=== PATIENT | female | born 1960 | race Caucasian/White ===

== ENCOUNTER 2022-09-22 09:51 | Emergency (ER) | payer OTHER ==
[2022-09-22] MEDS ORDERED: Bacitracin 1 PK ONE (10:15)
== END 2022-09-22 11:15 | disposition home or self-care (01) ==
LOC: CSHERS 09:51
DX: S91.302A Unspecified open wound, left foot, initial encounter (principal); I10 Essential (primary) hypertension; W19.XXXA Unspecified fall, initial encounter

== ENCOUNTER 2022-10-03 23:30 | Inpatient (IN) | payer OTHER ==
[2022-10-04 01:27] LABS: #Eosinphils 0.3 10x3/uL (0.0-0.5); #Monocytes 0.5 10x3/uL (0.0-1.1); #Neutrophils 5.7 10x3/uL (1.5-8.4); %Basophils 0.4 % (0.0-2.0); %Eosinophils 3.9 % (0.0-6.0); %Lymphocytes 13.5 % (18.0-47.0); %Monocytes 6.1 % (0.0-10.0); %Neutrophils 75.7 % (40.0-75.0); Hemoglobin 8.4 g/dL (12.0-15.5); Mean Corpuscular HGB CONC 32.6 g/dL (32.0-36.0); Mean Corpuscular Hemoglobin 28.9 pg (27.0-33.0); Mean Corpuscular Volume 88.7 fl (81.6-98.3); Platelet Count 195 10x3/uL (150-450); RBC Distribution Width 15.5 % (11.5-14.5); Red Blood Cell (RBC) Count 2.91 10x6/uL (3.90-5.03); White Blood Cell (WBC) Count 7.5 10x3/uL (3.5-10.5)
[2022-10-04 01:42] LABS: ALT (SGPT) 19 U/L (8-55); AST (SGOT) 15 U/L (5-34); Albumin 4.1 g/dL (3.4-4.8); Alkaline Phosphatase 78 U/L (40-110); Anion Gap 18 mmol/L (10-20); BUN (Urea Nitrogen) 87 mg/dL (9.8-20.1); Bilirubin, Total 0.3 mg/dL (0.2-1.2); Calc. Creatinine Clearance 0 mL/min (70-130); Calcium 9.9 mg/dL (7.8-10.44); Carbon Dioxide 17 mmol/L (23-31); Chloride 111 mmol/L (98-107); Estimated GFR 16; Globulin 2.4 g/dL (2.4-3.5); Glucose 184 mg/dL (80-115); Potassium 5.9 mmol/L (3.5-5.1); Protein, Total 6.5 g/dL (5.8-8.1); Sodium 140 mmol/L (136-145)
[2022-10-04] MEDS ORDERED: Cefepime 2 GM VIAL ONE (01:42)
[2022-10-04] MEDS ORDERED: Cefepime 2 GM in Sodium Chloride 0.9% 100 ML IVPB ONE (01:45)
[2022-10-04] MEDS ORDERED: Dextrose 50% Abboject 50 ML SYRINGE ONE (02:13)
[2022-10-04] MEDS ORDERED: LOKELMA 10 GM PACKET PO SCH ×2 (02:15→10:00)
[2022-10-04] MEDS ORDERED: Calcium Gluc 4.6 MEQ/10 ML (100 MG/ML) ONE (02:26)
[2022-10-04] MEDS ORDERED: Insulin Regular 300 UNITS/3 ML VIAL ONE (02:26)
[2022-10-04] MEDS ORDERED: Vancomycin 1 GM VIAL ONE (03:32)
[2022-10-04] MEDS ORDERED: Vancomycin HCl 1 GM in Sodium Chloride 0.9% 250 ML 250 ML IVPB ONE (03:45)
[2022-10-04] MEDS ORDERED: Vancomycin HCl 500 MG VIAL ONE (04:01)
[2022-10-04] MEDS ORDERED: Communication Order-Pharmacy FS ONE (04:14)
[2022-10-04] MEDS ORDERED: Vancomycin HCl 500 MG in Sodium Chloride 0.9% 100 ML IVPB SCH (04:15)
[2022-10-04] MEDS ORDERED: Sodium Chloride 0.9% 1,000 ML IV SCH (04:15)
[2022-10-04] MEDS ORDERED: Acetaminophen 325 MG TAB PO PRN (04:21)
[2022-10-04] MEDS ORDERED: Senokot S 8.6-50 MG TAB PO PRN (04:21)
[2022-10-04 04:24] LABS: SARS-CoV-2 NAA Rapid Test Not Detected (NotDetected)
[2022-10-04 07:33] LABS: Anion Gap 16 mmol/L (10-20); BUN (Urea Nitrogen) 84 mg/dL (9.8-20.1); Calc. Creatinine Clearance 32 mL/min (70-130); Calcium 9.6 mg/dL (7.8-10.44); Carbon Dioxide 16 mmol/L (23-31); Chloride 113 mmol/L (98-107); Estimated GFR 18; Glucose 128 mg/dL (80-115); Potassium 5.5 mmol/L (3.5-5.1); Sodium 139 mmol/L (136-145)
[2022-10-04 07:34] LABS: Magnesium 2.2 mg/dL (1.6-2.6)
[2022-10-04] MEDS ORDERED: Ergocalciferol 1.25 MG(50,000 UNITS) CAP PO SCH (09:00)
[2022-10-04] MEDS ORDERED: ASCORBIC ACID 100 MG PO SCH (09:00)
[2022-10-04] MEDS ORDERED: FLU VACC QS2022-23(6MOS UP)/PF 60 MCG/0.5 ML SYRINGE IM ONE (09:00)
[2022-10-04] MEDS: Carvedilol 25 MG TAB PO SCH ×2 (09:15→16:30)
[2022-10-04] MEDS: Aspirin 81 mg Enteric Coated Tablet PO SCH (09:15)
[2022-10-04] MEDS: cloNIDine 0.1 MG TAB PO SCH ×3 (09:15→21:18)
[2022-10-04] MEDS: Apixaban 5 MG TAB PO SCH ×2 (09:15→21:18)
[2022-10-04] MEDS: HumuLIN 70/30 (300 UNITS/3 ML VIAL) SC SCH ×2 (09:16→21:20)
[2022-10-04] MEDS ORDERED: Sodium Bicarbonate 150 MEQ in Dextrose 5% in Water 1,000 ML IV SCH (10:00)
[2022-10-04] MEDS: Polyethylene Glycol 3350 17 GM Packet PO SCH (10:20)
[2022-10-04] MEDS ORDERED: Vancomycin 1 GM in Premix Bag 1 BAG IVPB PRN (11:42)
[2022-10-04] MEDS ORDERED: Lorazepam 2 MG/ML VIAL SLOW IVP SCH (12:00)
[2022-10-04] MEDS: Atorvastatin Calcium 40 MG TAB PO SCH (21:18)
[2022-10-05] MEDS: Cefepime 1 GM in Sodium Chloride 0.9% 100 ML IVPB SCH (01:32)
[2022-10-05 03:12] LABS: #Eosinphils 0.3 10x3/uL (0.0-0.5); #Monocytes 0.5 10x3/uL (0.0-1.1); #Neutrophils 4.8 10x3/uL (1.5-8.4); %Basophils 0.6 % (0.0-2.0); %Eosinophils 4.6 % (0.0-6.0); %Lymphocytes 15.8 % (18.0-47.0); %Monocytes 7.3 % (0.0-10.0); %Neutrophils 71.6 % (40.0-75.0); Hemoglobin 7.5 g/dL (12.0-15.5); Mean Corpuscular HGB CONC 32.1 g/dL (32.0-36.0); Mean Corpuscular Hemoglobin 28.5 pg (27.0-33.0); Mean Platelet Volume 9.8 fl (7.4-10.4); Platelet Count 176 10x3/uL (150-450); RBC Distribution Width 15.4 % (11.5-14.5); Red Blood Cell (RBC) Count 2.63 10x6/uL (3.90-5.03); White Blood Cell (WBC) Count 6.7 10x3/uL (3.5-10.5)
[2022-10-05 03:33] LABS: Anion Gap 13 mmol/L (10-20); BUN (Urea Nitrogen) 75 mg/dL (9.8-20.1); Calc. Creatinine Clearance 35 mL/min (70-130); Calcium 8.9 mg/dL (7.8-10.44); Carbon Dioxide 21 mmol/L (23-31); Chloride 110 mmol/L (98-107); Estimated GFR 19; Glucose 197 mg/dL (80-115); Sodium 139 mmol/L (136-145)
[2022-10-05 04:18] LABS: Vancomycin, Random 11.9 ug/mL (See Comment)
[2022-10-05] MEDS ORDERED: Vancomycin HCl 1 GM in Sodium Chloride 0.9% 250 ML 250 ML IVPB SCH (05:00)
[2022-10-05] MEDS ORDERED: VANCOMYCIN 1.25 GM/250 ML BAG IVPB SCH (05:00)
[2022-10-05 06:23] VITALS: BMI 31.6
[2022-10-05] MEDS: Carvedilol 25 MG TAB PO SCH ×2 (06:31→15:02)
[2022-10-05] MEDS: Polyethylene Glycol 3350 17 GM Packet PO SCH (07:26)
[2022-10-05] MEDS: cloNIDine 0.1 MG TAB PO SCH ×3 (08:01→20:09)
[2022-10-05] MEDS: Apixaban 5 MG TAB PO SCH ×2 (08:01→20:10)
[2022-10-05] MEDS: Aspirin 81 mg Enteric Coated Tablet PO SCH (08:01)
[2022-10-05] MEDS: HumuLIN 70/30 (300 UNITS/3 ML VIAL) SC SCH ×2 (08:02→20:11)
[2022-10-05] MEDS: Sodium Chloride 0.9% 1,000 ML IV SCH (09:45)
[2022-10-05] MEDS: Atorvastatin Calcium 40 MG TAB PO SCH (20:10)
[2022-10-06] MEDS: Cefepime 1 GM in Sodium Chloride 0.9% 100 ML IVPB SCH (01:49)
[2022-10-06 03:52] LABS: #Eosinphils 0.3 10x3/uL (0.0-0.5); #Monocytes 0.6 10x3/uL (0.0-1.1); #Neutrophils 5.4 10x3/uL (1.5-8.4); %Basophils 0.3 % (0.0-2.0); %Eosinophils 3.5 % (0.0-6.0); %Lymphocytes 14.2 % (18.0-47.0); %Monocytes 7.7 % (0.0-10.0); Hemoglobin 7.7 g/dL (12.0-15.5); Mean Corpuscular HGB CONC 32.5 g/dL (32.0-36.0); Mean Corpuscular Hemoglobin 28.8 pg (27.0-33.0); Mean Corpuscular Volume 88.8 fl (81.6-98.3); Mean Platelet Volume 9.3 fl (7.4-10.4); Platelet Count 168 10x3/uL (150-450); RBC Distribution Width 15.1 % (11.5-14.5); Red Blood Cell (RBC) Count 2.67 10x6/uL (3.90-5.03); White Blood Cell (WBC) Count 7.2 10x3/uL (3.5-10.5)
[2022-10-06 04:07] LABS: ALT (SGPT) 18 U/L (8-55); AST (SGOT) 10 U/L (5-34); Albumin 3.3 g/dL (3.4-4.8); Alkaline Phosphatase 69 U/L (40-110); Anion Gap 12 mmol/L (10-20); BUN (Urea Nitrogen) 77 mg/dL (9.8-20.1); Bilirubin, Total 0.3 mg/dL (0.2-1.2); Calc. Creatinine Clearance 35 mL/min (70-130); Calcium 8.8 mg/dL (7.8-10.44); Carbon Dioxide 19 mmol/L (23-31); Chloride 111 mmol/L (98-107); Estimated GFR 20; Globulin 1.7 g/dL (2.4-3.5); Glucose 138 mg/dL (80-115); Magnesium 2.1 mg/dL (1.6-2.6); Phosphorus 3.8 mg/dL (2.3-4.7); Potassium 5.3 mmol/L (3.5-5.1); Sodium 137 mmol/L (136-145)
[2022-10-06 04:24] LABS: Vancomycin, Random 14.3 ug/mL (See Comment)
[2022-10-06] MEDS: Sodium Chloride 0.9% 1,000 ML IV SCH (04:28)
[2022-10-06] MEDS ORDERED: Vancomycin HCl 750 MG in Sodium Chloride 0.9% 250 ML 250 ML IVPB SCH (05:00)
[2022-10-06] MEDS: Carvedilol 25 MG TAB PO SCH ×2 (05:43→14:07)
[2022-10-06] MEDS: Aspirin 81 mg Enteric Coated Tablet PO SCH (08:24)
[2022-10-06] MEDS: Polyethylene Glycol 3350 17 GM Packet PO SCH (08:24)
[2022-10-06] MEDS: cloNIDine 0.1 MG TAB PO SCH ×3 (08:24→20:57)
[2022-10-06] MEDS: Apixaban 5 MG TAB PO SCH ×2 (08:24→20:58)
[2022-10-06] MEDS: HumuLIN 70/30 (300 UNITS/3 ML VIAL) SC SCH ×2 (08:24→20:57)
[2022-10-06] MEDS ORDERED: Sodium Bicarbonate 150 MEQ in Dextrose 5% in Water 1,000 ML IV SCH (12:00)
[2022-10-06] MEDS ORDERED: hydrALAZINE 25 MG TAB PO SCH (12:30)
[2022-10-06] MEDS: Atorvastatin Calcium 40 MG TAB PO SCH (20:58)
[2022-10-07] MEDS: Cefepime 1 GM in Sodium Chloride 0.9% 100 ML IVPB SCH (01:33)
[2022-10-07 04:31] LABS: Anion Gap 11 mmol/L (10-20); BUN (Urea Nitrogen) 70 mg/dL (9.8-20.1); Calc. Creatinine Clearance 37 mL/min (70-130); Calcium 9.1 mg/dL (7.8-10.44); Carbon Dioxide 20 mmol/L (23-31); Chloride 113 mmol/L (98-107); Estimated GFR 22; Glucose 105 mg/dL (80-115); Potassium 5.1 mmol/L (3.5-5.1); Sodium 139 mmol/L (136-145); Vancomycin, Random 17.5 ug/mL (See Comment)
[2022-10-07 04:51] LABS: #Eosinphils 0.2 10x3/uL (0.0-0.5); #Monocytes 0.5 10x3/uL (0.0-1.1); #Neutrophils 5.3 10x3/uL (1.5-8.4); %Basophils 0.4 % (0.0-2.0); %Eosinophils 3.4 % (0.0-6.0); %Lymphocytes 13.6 % (18.0-47.0); %Monocytes 6.8 % (0.0-10.0); %Neutrophils 75.5 % (40.0-75.0); Hemoglobin 7.6 g/dL (12.0-15.5); Mean Corpuscular HGB CONC 32.2 g/dL (32.0-36.0); Mean Corpuscular Hemoglobin 28.6 pg (27.0-33.0); Mean Corpuscular Volume 88.7 fl (81.6-98.3); Mean Platelet Volume 9.7 fl (7.4-10.4); Platelet Count 168 10x3/uL (150-450); Red Blood Cell (RBC) Count 2.66 10x6/uL (3.90-5.03); White Blood Cell (WBC) Count 7.1 10x3/uL (3.5-10.5)
[2022-10-07] MEDS: Carvedilol 25 MG TAB PO SCH ×2 (05:56→15:30)
[2022-10-07] MEDS ORDERED: Vancomycin HCl 500 MG in Sodium Chloride 0.9% 100 ML IVPB SCH (08:00)
[2022-10-07] MEDS ORDERED: hydrALAZINE 25 MG TAB PO SCH ×2 (09:00→21:00)
[2022-10-07] MEDS ORDERED: Lisinopril 2.5 MG TAB PO SCH (09:00)
[2022-10-07] MEDS: HumuLIN 70/30 (300 UNITS/3 ML VIAL) SC SCH (09:25)
[2022-10-07] MEDS: Aspirin 81 mg Enteric Coated Tablet PO SCH (09:32)
[2022-10-07] MEDS: Apixaban 5 MG TAB PO SCH (09:33)
[2022-10-07] MEDS: cloNIDine 0.1 MG TAB PO SCH ×2 (09:35→15:30)
[2022-10-07] MEDS: Polyethylene Glycol 3350 17 GM Packet PO SCH (09:37)
[2022-10-07] MEDS ORDERED: EPOETIN ALFA-EPBX (NON-ESRD) 10,000 UNIT/ML VIAL SC SCH (11:00)
[2022-10-07 17:24] VITALS: BP 187/81; TEMP 98.4
[2022-10-07] MEDS ORDERED: Furosemide 40 MG TAB PO SCH (21:00)
[2022-10-08] MEDS ORDERED: Furosemide 20 MG TAB PO SCH (09:00)
== END 2022-10-07 18:50 | disposition home or self-care (01) | DRG 638 ==
LOC: CSHERS 23:30 → CSHICU 10-04 04:34 → CSHTELE 10-05 11:16
PROVIDERS: ADMIT Family Medicine; ATTEND Internal Medicine
PROC: 0HDNXZZ Extraction of Left Foot Skin, External Approach (ICD-10-PCS; principal; 2022-10-06)
DX: E11.628 Type 2 diabetes mellitus with other skin complications (principal); E11.52 Type 2 diabetes mellitus with diabetic peripheral angiopathy with gangrene; E87.20 Acidosis, unspecified; L03.116 Cellulitis of left lower limb; I50.32 Chronic diastolic (congestive) heart failure; I13.0 Hypertensive heart and chronic kidney disease with heart failure and stage 1 through stage 4 chronic kidney disease, or unspecified chronic kidney disease; N18.4 Chronic kidney disease, stage 4 (severe); E78.5 Hyperlipidemia, unspecified; E11.22 Type 2 diabetes mellitus with diabetic chronic kidney disease; D63.1 Anemia in chronic kidney disease; M10.9 Gout, unspecified; E87.5 Hyperkalemia; N17.9 Acute kidney failure, unspecified; Z20.822 Contact with and (suspected) exposure to COVID-19; Z98.890 Other specified postprocedural states; Z91.040 Latex allergy status; Z88.8 Allergy status to other drugs, medicaments and biological substances; Z79.82 Long term (current) use of aspirin; Z79.899 Other long term (current) drug therapy; Z86.718 Personal history of other venous thrombosis and embolism; Z90.79 Acquired absence of other genital organ(s); Z83.3 Family history of diabetes mellitus; Z82.49 Family history of ischemic heart disease and other diseases of the circulatory system; Z79.4 Long term (current) use of insulin; E66.9 Obesity, unspecified; Z68.31 Body mass index [BMI] 31.0-31.9, adult
CPT/HCPCS: 36415; 36416; 70551; 80048; 80053; 80202; 83605; 83735; 84100; 85025; 85652; 86140; 87040; 87070; 87077; 87205; 93306; 93880; 97139; J0610; J0692; J1815; J2060; J3370; J3490; J7050; J7070; J7999; Q5106

== ENCOUNTER 2022-10-30 08:26 | Outpatient (CLI) | payer OTHER | END 2022-10-30 08:27 | disposition home or self-care (01) | LOC: CSHWCC 08:26 | PROVIDERS: ATTEND Nurse Practitioner Family | DX: R60.0 Localized edema (principal) | CPT/HCPCS: 29581; 99212; G0463 ==

== ENCOUNTER 2022-11-06 09:45 | Outpatient (CLI) | payer OTHER | END 2022-11-06 09:46 | disposition home or self-care (01) | LOC: CSHWCC 09:45 | PROVIDERS: ATTEND Nurse Practitioner Family | DX: L89.620 Pressure ulcer of left heel, unstageable (principal); R60.0 Localized edema | CPT/HCPCS: 11042; 29581 ==

== ENCOUNTER 2022-11-13 13:40 | Outpatient (CLI) | payer OTHER | END 2022-11-13 13:41 | disposition home or self-care (01) | LOC: CSHWCC 13:40 | PROVIDERS: ATTEND Nurse Practitioner Family | DX: L89.620 Pressure ulcer of left heel, unstageable (principal); R60.0 Localized edema | CPT/HCPCS: 11042 ==

== ENCOUNTER 2022-11-19 11:20 | Outpatient (CLI) | payer OTHER | END 2022-11-19 11:21 | disposition home or self-care (01) | LOC: CSHWCC 11:20 | PROVIDERS: ATTEND Nurse Practitioner Family | DX: L89.620 Pressure ulcer of left heel, unstageable (principal); R60.0 Localized edema | CPT/HCPCS: 11042; 11045 ==

== ENCOUNTER 2022-11-29 09:52 | Outpatient (CLI) | payer OTHER | END 2022-11-29 09:53 | disposition home or self-care (01) | LOC: CSHWCC 09:52 | PROVIDERS: ATTEND Nurse Practitioner Family | DX: L89.620 Pressure ulcer of left heel, unstageable (principal); R60.0 Localized edema | CPT/HCPCS: 29581 ==

== ENCOUNTER 2022-12-07 18:14 | Inpatient (IN) | payer OTHER ==
[2022-12-07] MEDS ORDERED: Vancomycin 1.5 GRAM/300 ML BAG 1.5 GM in Premix Bag 1 BAG IVPB SCH (20:00)
[2022-12-07] MEDS ORDERED: Ampicillin/Sulbactam 3 GM in Sodium Chloride 0.9% 100 ML IVPB SCH (20:00)
[2022-12-07 20:17] LABS: #Eosinphils 0.2 10x3/uL (0.0-0.5); #Monocytes 0.6 10x3/uL (0.0-1.1); #Neutrophils 7.9 10x3/uL (1.5-8.4); %Basophils 0.3 % (0.0-2.0); %Eosinophils 2.3 % (0.0-6.0); %Lymphocytes 10.8 % (18.0-47.0); %Monocytes 6.4 % (0.0-10.0); %Neutrophils 79.8 % (40.0-75.0); Hemoglobin 9.3 g/dL (12.0-15.5); Mean Corpuscular HGB CONC 31.1 g/dL (32.0-36.0); Mean Corpuscular Hemoglobin 28.1 pg (27.0-33.0); Mean Corpuscular Volume 90.3 fl (81.6-98.3); Mean Platelet Volume 10.3 fl (7.4-10.4); Platelet Count 252 10x3/uL (150-450); RBC Distribution Width 15.8 % (11.5-14.5); Red Blood Cell (RBC) Count 3.31 10x6/uL (3.90-5.03)
[2022-12-07 20:21] LABS: ALT (SGPT) 17 U/L (8-55); AST (SGOT) 17 U/L (5-34); Albumin 3.8 g/dL (3.4-4.8); Alkaline Phosphatase 93 U/L (40-110); Anion Gap 18 mmol/L (10-20); BUN (Urea Nitrogen) 96 mg/dL (9.8-20.1); Bilirubin, Total 0.3 mg/dL (0.2-1.2); Calc. Creatinine Clearance 0 mL/min (70-130); Calcium 10.2 mg/dL (7.8-10.44); Carbon Dioxide 28 mmol/L (23-31); Chloride 98 mmol/L (98-107); Estimated GFR 14; Globulin 2.9 g/dL (2.4-3.5); Glucose 264 mg/dL (80-115); Potassium 4.1 mmol/L (3.5-5.1); Protein, Total 6.7 g/dL (5.8-8.1); Sodium 140 mmol/L (136-145)
[2022-12-07 20:45] LABS: Bilirubin Neg (Negative); Blood, Urine 50 (Negative); Glucose, Urine (Dipstick) 250 mg/dL (Negative); Ketone, Urine Negative (Negative); Leukocyte 25 (Negative); Nitrite Negative (Negative); Protein, Urine (Dipstick) 500 mg/dl (Neg-Trace); Urobilinogen Normal mg/dL (Less than 2)
[2022-12-07 20:46] LABS: Clarity Slightly Cloudy (Clear)
[2022-12-07 20:49] LABS: Bacteria/HPF 3+ HPF (None Seen)
[2022-12-07] MEDS ORDERED: cloNIDine 0.1 MG TAB ONE (21:33)
[2022-12-07] MEDS: Sodium Chloride 0.9% 1,000 ML IV SCH (22:30)
[2022-12-07] MEDS ORDERED: Acetaminophen 325 MG TAB PO PRN (23:01)
[2022-12-07] MEDS ORDERED: Dextrose 5% in Water 1,000 ML IV PRN (23:13)
[2022-12-07] MEDS ORDERED: Dextrose 50% Abboject 50 ML SYRINGE SLOW IVP PRN (23:13)
[2022-12-07] MEDS ORDERED: VANCOMYCIN IVPB SCH (23:45)
[2022-12-07] MEDS: HumaLOG 300 UNITS/3 ML VIAL SC PRN (23:51)
[2022-12-07] MEDS ORDERED: hydrALAZINE 25 MG TAB PO SCH (23:59)
[2022-12-07] MEDS ORDERED: Carvedilol 25 MG TAB PO SCH (23:59)
[2022-12-07] MEDS ORDERED: Apixaban 5 MG TAB PO SCH (23:59)
[2022-12-07] MEDS ORDERED: cloNIDine 0.1 MG TAB PO SCH (23:59)
[2022-12-08 00:15] VITALS: BMI 30.9
[2022-12-08] MEDS ORDERED: Vancomycin Dose by Levels Sliding Scale (Wt 71-99) FS SCH (00:30)
[2022-12-08 04:38] LABS: #Eosinphils 0.2 10x3/uL (0.0-0.5); #Monocytes 0.6 10x3/uL (0.0-1.1); #Neutrophils 5.9 10x3/uL (1.5-8.4); %Basophils 0.5 % (0.0-2.0); %Eosinophils 3.1 % (0.0-6.0); %Lymphocytes 13.2 % (18.0-47.0); %Monocytes 7.6 % (0.0-10.0); Hemoglobin 7.7 g/dL (12.0-15.5); Mean Corpuscular Hemoglobin 28.4 pg (27.0-33.0); Mean Corpuscular Volume 91.5 fl (81.6-98.3); Mean Platelet Volume 9.5 fl (7.4-10.4); Platelet Count 206 10x3/uL (150-450); RBC Distribution Width 15.8 % (11.5-14.5); Red Blood Cell (RBC) Count 2.71 10x6/uL (3.90-5.03); White Blood Cell (WBC) Count 7.9 10x3/uL (3.5-10.5)
[2022-12-08 04:49] LABS: Anion Gap 15 mmol/L (10-20); BUN (Urea Nitrogen) 93 mg/dL (9.8-20.1); Calc. Creatinine Clearance 26 mL/min (70-130); Carbon Dioxide 27 mmol/L (23-31); Chloride 102 mmol/L (98-107); Estimated GFR 14; Glucose 188 mg/dL (80-115); Magnesium 3.2 mg/dL (1.6-2.6); Potassium 3.8 mmol/L (3.5-5.1); Sodium 140 mmol/L (136-145)
[2022-12-08] MEDS: HumaLOG 300 UNITS/3 ML VIAL SC PRN ×3 (06:31→21:05)
[2022-12-08] MEDS ORDERED: Ampicillin/Sulbactam 3 GM in Sodium Chloride 0.9% 100 ML IVPB SCH (08:00)
[2022-12-08] MEDS: HumuLIN 70/30 (300 UNITS/3 ML VIAL) SC SCH ×2 (09:32→20:56)
[2022-12-08] MEDS: Senokot S 8.6-50 MG TAB PO PRN (09:33)
[2022-12-08] MEDS: cloNIDine 0.1 MG TAB PO SCH ×3 (09:33→20:56)
[2022-12-08] MEDS: Aspirin 81 mg Enteric Coated Tablet PO SCH (09:33)
[2022-12-08] MEDS: Apixaban 5 MG TAB PO SCH ×2 (09:33→20:56)
[2022-12-08] MEDS: Carvedilol 25 MG TAB PO SCH ×2 (09:33→15:44)
[2022-12-08] MEDS: hydrALAZINE 25 MG TAB PO SCH ×3 (09:33→20:56)
[2022-12-08] MEDS: cefTRIAXone\\ROCEPHIN 1 GM in Sodium Chloride 0.9% 100 ML IVPB SCH (09:58)
[2022-12-08] MEDS: Sodium Chloride 0.9% 1,000 ML IV SCH (11:53)
[2022-12-08 13:27] LABS: Uric Acid 5.9 mg/dL (2.6-6.0)
[2022-12-08 23:02] LABS: Vancomycin, Random 14.7 ug/mL (See Comment)
[2022-12-08] MEDS ORDERED: Vancomycin HCl 750 MG in Sodium Chloride 0.9% 250 ML 250 ML IVPB SCH (23:30)
[2022-12-09] MEDS: Sodium Chloride 0.9% 1,000 ML IV SCH (00:27)
[2022-12-09 04:36] LABS: Mean Corpuscular HGB CONC 30.6 g/dL (32.0-36.0); Mean Corpuscular Hemoglobin 28.5 pg (27.0-33.0); Mean Corpuscular Volume 93.1 fl (81.6-98.3); Mean Platelet Volume 10.1 fl (7.4-10.4); Platelet Count 194 10x3/uL (150-450); RBC Distribution Width 15.9 % (11.5-14.5); Red Blood Cell (RBC) Count 2.46 10x6/uL (3.90-5.03); White Blood Cell (WBC) Count 6.7 10x3/uL (3.5-10.5)
[2022-12-09 04:42] LABS: Anion Gap 13 mmol/L (10-20); BUN (Urea Nitrogen) 88 mg/dL (9.8-20.1); Calc. Creatinine Clearance 26 mL/min (70-130); Calcium 8.6 mg/dL (7.8-10.44); Carbon Dioxide 27 mmol/L (23-31); Chloride 105 mmol/L (98-107); Estimated GFR 15; Glucose 182 mg/dL (80-115); Potassium 3.8 mmol/L (3.5-5.1); Sodium 141 mmol/L (136-145)
[2022-12-09] MEDS: cefTRIAXone\\ROCEPHIN 1 GM in Sodium Chloride 0.9% 100 ML IVPB SCH (08:34)
[2022-12-09] MEDS: HumuLIN 70/30 (300 UNITS/3 ML VIAL) SC SCH (08:34)
[2022-12-09] MEDS: Aspirin 81 mg Enteric Coated Tablet PO SCH (08:35)
[2022-12-09] MEDS: Apixaban 5 MG TAB PO SCH ×2 (08:35→22:02)
[2022-12-09] MEDS: hydrALAZINE 25 MG TAB PO SCH ×3 (08:35→22:01)
[2022-12-09] MEDS: cloNIDine 0.1 MG TAB PO SCH ×3 (08:35→22:00)
[2022-12-09] MEDS: Senokot S 8.6-50 MG TAB PO PRN (08:35)
[2022-12-09] MEDS: Carvedilol 25 MG TAB PO SCH ×2 (08:36→16:13)
[2022-12-09] MEDS ORDERED: Furosemide 40 MG TAB PO SCH (09:00)
[2022-12-09] MEDS ORDERED: hydrALAZINE 25 MG TAB PO SCH (09:00)
[2022-12-09] MEDS ORDERED: CLONIDINE HCL 0.3 MG PO SCH (09:00)
[2022-12-09] MEDS ORDERED: Polyethylene Glycol 3350 17 GM Packet PO PRN (12:20)
[2022-12-09] MEDS ORDERED: Docusate 100 MG CAP PO PRN (12:20)
[2022-12-09 14:04] LABS: Hemoglobin 7.3 g/dL (12.0-15.5)
[2022-12-09] MEDS: Ferrous Sulfate 325 MG TAB PO SCH (16:13)
[2022-12-09] MEDS: HumaLOG 300 UNITS/3 ML VIAL SC PRN (16:25)
[2022-12-10] MEDS: HumuLIN 70/30 (300 UNITS/3 ML VIAL) SC SCH ×3 (00:20→22:23)
[2022-12-10 00:27] LABS: Vancomycin, Random 16.7 ug/mL (See Comment)
[2022-12-10] MEDS ORDERED: Vancomycin HCl 500 MG in Sodium Chloride 0.9% 100 ML IVPB SCH (02:00)
[2022-12-10 05:12] LABS: Mean Corpuscular HGB CONC 30.4 g/dL (32.0-36.0); Mean Corpuscular Hemoglobin 28.2 pg (27.0-33.0); Mean Corpuscular Volume 92.7 fl (81.6-98.3); Mean Platelet Volume 9.7 fl (7.4-10.4); Platelet Count 196 10x3/uL (150-450); RBC Distribution Width 15.9 % (11.5-14.5); Red Blood Cell (RBC) Count 2.48 10x6/uL (3.90-5.03); White Blood Cell (WBC) Count 7.2 10x3/uL (3.5-10.5)
[2022-12-10 05:30] LABS: Anion Gap 14 mmol/L (10-20); BUN (Urea Nitrogen) 77 mg/dL (9.8-20.1); Calc. Creatinine Clearance 30 mL/min (70-130); Calcium 8.9 mg/dL (7.8-10.44); Carbon Dioxide 25 mmol/L (23-31); Chloride 107 mmol/L (98-107); Estimated GFR 18; Glucose 183 mg/dL (80-115); Potassium 3.9 mmol/L (3.5-5.1); Sodium 142 mmol/L (136-145)
[2022-12-10] MEDS: NIFEdipine XL 60 MG TAB PO SCH (08:35)
[2022-12-10] MEDS: Ferrous Sulfate 325 MG TAB PO SCH ×2 (08:36→16:32)
[2022-12-10] MEDS: hydrALAZINE 25 MG TAB PO SCH ×3 (08:36→22:22)
[2022-12-10] MEDS: Aspirin 81 mg Enteric Coated Tablet PO SCH (08:36)
[2022-12-10] MEDS: cloNIDine 0.1 MG TAB PO SCH ×3 (08:36→22:22)
[2022-12-10] MEDS: Apixaban 5 MG TAB PO SCH ×2 (08:36→22:23)
[2022-12-10] MEDS: Carvedilol 25 MG TAB PO SCH ×2 (08:36→16:32)
[2022-12-10] MEDS: cefTRIAXone\\ROCEPHIN 1 GM in Sodium Chloride 0.9% 100 ML IVPB SCH (08:38)
[2022-12-10] MEDS ORDERED: Iron, Sodium Ferric Gluconate 125 MG in Sodium Chloride 0.9% 100 ML IVPB SCH (10:15)
[2022-12-11 05:33] LABS: Hemoglobin 7.1 g/dL (12.0-15.5); Mean Corpuscular HGB CONC 30.7 g/dL (32.0-36.0); Mean Corpuscular Hemoglobin 28.4 pg (27.0-33.0); Mean Corpuscular Volume 92.4 fl (81.6-98.3); Mean Platelet Volume 9.8 fl (7.4-10.4); Platelet Count 185 10x3/uL (150-450); RBC Distribution Width 15.9 % (11.5-14.5); White Blood Cell (WBC) Count 7.3 10x3/uL (3.5-10.5)
[2022-12-11 05:39] LABS: Anion Gap 12 mmol/L (10-20); BUN (Urea Nitrogen) 74 mg/dL (9.8-20.1); Calc. Creatinine Clearance 30 mL/min (70-130); Calcium 9.1 mg/dL (7.8-10.44); Carbon Dioxide 25 mmol/L (23-31); Chloride 109 mmol/L (98-107); Estimated GFR 17; Glucose 107 mg/dL (80-115); Potassium 4.3 mmol/L (3.5-5.1); Sodium 142 mmol/L (136-145)
[2022-12-11] MEDS: Vancomycin HCl 500 MG in Sodium Chloride 0.9% 100 ML IVPB SCH ×2 (07:24→07:52)
[2022-12-11] MEDS ORDERED: Vancomycin HCl 500 MG in Sodium Chloride 0.9% 100 ML IVPB SCH (07:30)
[2022-12-11] MEDS: Ferrous Sulfate 325 MG TAB PO SCH ×2 (08:47→17:12)
[2022-12-11] MEDS: hydrALAZINE 25 MG TAB PO SCH (08:47)
[2022-12-11] MEDS: Carvedilol 25 MG TAB PO SCH ×2 (08:47→17:12)
[2022-12-11] MEDS: NIFEdipine XL 60 MG TAB PO SCH (08:47)
[2022-12-11] MEDS: Aspirin 81 mg Enteric Coated Tablet PO SCH (08:48)
[2022-12-11] MEDS: Apixaban 5 MG TAB PO SCH (08:48)
[2022-12-11] MEDS: cloNIDine 0.1 MG TAB PO SCH ×2 (08:48→14:41)
[2022-12-11] MEDS: HumuLIN 70/30 (300 UNITS/3 ML VIAL) SC SCH (08:50)
[2022-12-11] MEDS: cefTRIAXone\\ROCEPHIN 1 GM in Sodium Chloride 0.9% 100 ML IVPB SCH (08:50)
[2022-12-11] MEDS: Clindamycin 150 MG CAP PO SCH ×2 (12:09→17:12)
[2022-12-11] MEDS ORDERED: hydrALAZINE 25 MG TAB PO SCH ×2 (13:00→21:00)
[2022-12-11] MEDS: HumaLOG 300 UNITS/3 ML VIAL SC PRN (16:42)
[2022-12-11 17:21] VITALS: BP 165/74; TEMP 98.9
[2022-12-11] MEDS ORDERED: Furosemide 20 MG TAB PO SCH (21:00)
[2022-12-11] MEDS ORDERED: Cefdinir 300 MG CAP PO SCH (21:00)
[2022-12-11] MEDS ORDERED: Atorvastatin Calcium 40 MG TAB PO SCH (21:00)
[2022-12-12] MEDS ORDERED: cefTRIAXone\\ROCEPHIN 2 GM in Sodium Chloride 0.9% 100 ML IVPB SCH (09:00)
[2022-12-12] MEDS ORDERED: cefTRIAXone Sodium 2 MG in Syringe 0 ML IVPB SCH (09:00)
== END 2022-12-11 18:48 | disposition home or self-care (01) | DRG 602 ==
LOC: CSHERS 18:14 → CSHTELE 21:45
PROVIDERS: ADMIT Family Medicine; ATTEND Family Medicine
DX: L03.115 Cellulitis of right lower limb (principal); N17.0 Acute kidney failure with tubular necrosis; I13.0 Hypertensive heart and chronic kidney disease with heart failure and stage 1 through stage 4 chronic kidney disease, or unspecified chronic kidney disease; I50.32 Chronic diastolic (congestive) heart failure; N39.0 Urinary tract infection, site not specified; N18.4 Chronic kidney disease, stage 4 (severe); I82.511 Chronic embolism and thrombosis of right femoral vein; I82.531 Chronic embolism and thrombosis of right popliteal vein; E11.621 Type 2 diabetes mellitus with foot ulcer; L03.116 Cellulitis of left lower limb; E66.9 Obesity, unspecified; L97.529 Non-pressure chronic ulcer of other part of left foot with unspecified severity; E11.22 Type 2 diabetes mellitus with diabetic chronic kidney disease; M10.9 Gout, unspecified; E11.40 Type 2 diabetes mellitus with diabetic neuropathy, unspecified; E78.5 Hyperlipidemia, unspecified; D63.8 Anemia in other chronic diseases classified elsewhere; Z20.822 Contact with and (suspected) exposure to COVID-19; Z91.040 Latex allergy status; Z88.8 Allergy status to other drugs, medicaments and biological substances; Z79.01 Long term (current) use of anticoagulants; Z79.899 Other long term (current) drug therapy; Z79.4 Long term (current) use of insulin; Z98.890 Other specified postprocedural states; Z68.31 Body mass index [BMI] 31.0-31.9, adult
CPT/HCPCS: 36415; 36416; 80048; 80053; 80202; 81003; 81015; 83605; 83735; 84550; 85025; 85027; 87040; 87070; 87077; 87086; 87186; 87205; 93005; 96365; 96366; 96367; 97139; J0295; J0696; J1815; J2916; J3370; J3490; J7050; U0003; U0005

== ENCOUNTER 2022-12-18 13:06 | Outpatient (CLI) | payer OTHER | END 2022-12-18 13:07 | disposition home or self-care (01) | LOC: CSHWCC 13:06 | PROVIDERS: ATTEND Nurse Practitioner Family | DX: S81.801D Unspecified open wound, right lower leg, subsequent encounter (principal); L89.620 Pressure ulcer of left heel, unstageable; R60.0 Localized edema | CPT/HCPCS: 99213; G0463 ==

== ENCOUNTER 2022-12-25 10:11 | Outpatient (CLI) | payer OTHER | END 2022-12-25 10:12 | disposition home or self-care (01) | LOC: CSHWCC 10:11 | PROVIDERS: ATTEND Nurse Practitioner Family | DX: L89.620 Pressure ulcer of left heel, unstageable (principal); S81.801D Unspecified open wound, right lower leg, subsequent encounter; R60.0 Localized edema | CPT/HCPCS: 11042 ==

== ENCOUNTER 2023-01-01 08:29 | Outpatient (CLI) | payer OTHER | END 2023-01-01 08:30 | disposition home or self-care (01) | LOC: CSHWCC 08:29 | PROVIDERS: ATTEND Nurse Practitioner Family | DX: L89.620 Pressure ulcer of left heel, unstageable (principal); R60.0 Localized edema | CPT/HCPCS: 99213; G0463 ==

== ENCOUNTER 2023-01-08 09:35 | Outpatient (CLI) | payer OTHER | END 2023-01-08 09:36 | disposition home or self-care (01) | LOC: CSHWCC 09:35 | PROVIDERS: ATTEND Nurse Practitioner Family | DX: L89.620 Pressure ulcer of left heel, unstageable (principal); R60.0 Localized edema | CPT/HCPCS: 29581 ==

== ENCOUNTER 2023-02-06 11:07 | Outpatient (CLI) | payer OTHER | END 2023-02-06 11:08 | disposition home or self-care (01) | LOC: CSHWCC 11:07 | PROVIDERS: ATTEND Nurse Practitioner Family | DX: L89.620 Pressure ulcer of left heel, unstageable (principal); R60.0 Localized edema | CPT/HCPCS: 99213; G0463 ==

== ENCOUNTER 2023-02-13 13:40 | Outpatient (CLI) | payer OTHER | END 2023-02-13 13:41 | disposition home or self-care (01) | LOC: CSHWCC 13:40 | PROVIDERS: ATTEND Nurse Practitioner Family | DX: R60.0 Localized edema (principal); L89.620 Pressure ulcer of left heel, unstageable | CPT/HCPCS: 11042; 29581 ==

== ENCOUNTER 2023-02-28 08:32 | Outpatient (CLI) | payer OTHER | END 2023-02-28 08:33 | disposition home or self-care (01) | LOC: CSHWCC 08:32 | PROVIDERS: ATTEND Nurse Practitioner Family | DX: R60.0 Localized edema (principal); L89.620 Pressure ulcer of left heel, unstageable | CPT/HCPCS: 11042; 29581; 99213; G0463 ==

== ENCOUNTER 2023-03-19 10:18 | Outpatient (CLI) | payer OTHER | END 2023-03-19 10:19 | disposition home or self-care (01) | LOC: CSHWCC 10:18 | PROVIDERS: ATTEND Nurse Practitioner Family | DX: R60.0 Localized edema (principal); L89.620 Pressure ulcer of left heel, unstageable | CPT/HCPCS: 11042 ==

== ENCOUNTER 2023-03-26 14:35 | Outpatient (CLI) | payer OTHER | END 2023-03-26 14:36 | disposition home or self-care (01) | LOC: CSHWCC 14:35 | PROVIDERS: ATTEND Nurse Practitioner Family | DX: R60.9 Edema, unspecified (principal); L89.620 Pressure ulcer of left heel, unstageable | CPT/HCPCS: 11042; 29581 ==

== ENCOUNTER 2023-04-02 14:47 | Outpatient (CLI) | payer OTHER | END 2023-04-02 14:48 | disposition home or self-care (01) | LOC: CSHWCC 14:47 | PROVIDERS: ATTEND Nurse Practitioner Family | DX: R60.0 Localized edema (principal); L89.620 Pressure ulcer of left heel, unstageable; S91.309D Unspecified open wound, unspecified foot, subsequent encounter | CPT/HCPCS: 29581; 97597 ==

== ENCOUNTER 2023-04-10 10:59 | Outpatient (CLI) | payer OTHER | END 2023-04-10 11:00 | disposition home or self-care (01) | LOC: CSHWCC 10:59 | PROVIDERS: ATTEND Nurse Practitioner Family | DX: R60.0 Localized edema (principal); L89.620 Pressure ulcer of left heel, unstageable; S91.309D Unspecified open wound, unspecified foot, subsequent encounter | CPT/HCPCS: 11042; 29581 ==

== ENCOUNTER 2023-04-17 10:14 | Outpatient (CLI) | payer OTHER | END 2023-04-17 10:15 | disposition home or self-care (01) | LOC: CSHWCC 10:14 | PROVIDERS: ATTEND Nurse Practitioner Family | DX: L89.623 Pressure ulcer of left heel, stage 3 (principal); L89.620 Pressure ulcer of left heel, unstageable; R60.0 Localized edema | CPT/HCPCS: 11042; 29581; 87070; 87077; 87186; 87205 ==

== ENCOUNTER 2023-04-25 10:34 | Outpatient (CLI) | payer OTHER | END 2023-04-25 10:35 | disposition home or self-care (01) | LOC: CSHWCC 10:34 | PROVIDERS: ATTEND Nurse Practitioner Family | DX: E11.621 Type 2 diabetes mellitus with foot ulcer (principal); R60.0 Localized edema; L89.620 Pressure ulcer of left heel, unstageable; L89.623 Pressure ulcer of left heel, stage 3; I87.311 Chronic venous hypertension (idiopathic) with ulcer of right lower extremity; L97.819 Non-pressure chronic ulcer of other part of right lower leg with unspecified severity; L97.519 Non-pressure chronic ulcer of other part of right foot with unspecified severity | CPT/HCPCS: 29581; 97597 ==

== ENCOUNTER 2023-05-02 08:46 | Outpatient (CLI) | payer OTHER | END 2023-05-02 08:47 | disposition home or self-care (01) | LOC: CSHWCC 08:46 | PROVIDERS: ATTEND Nurse Practitioner Family | DX: L89.623 Pressure ulcer of left heel, stage 3 (principal); L89.620 Pressure ulcer of left heel, unstageable; R60.0 Localized edema; E11.621 Type 2 diabetes mellitus with foot ulcer; L97.519 Non-pressure chronic ulcer of other part of right foot with unspecified severity | CPT/HCPCS: 29581; 97597 ==

== ENCOUNTER 2023-06-20 11:27 | Outpatient (CLI) | payer OTHER | END 2023-06-20 11:28 | disposition home or self-care (01) | LOC: CSHWCC 11:27 | PROVIDERS: ATTEND Preventive Medicine Undersea and Hyperbaric Medicine | DX: E11.621 Type 2 diabetes mellitus with foot ulcer (principal); L97.519 Non-pressure chronic ulcer of other part of right foot with unspecified severity; L89.620 Pressure ulcer of left heel, unstageable; R60.0 Localized edema | CPT/HCPCS: 97602 ==

== ENCOUNTER 2023-07-04 11:30 | Outpatient (CLI) | payer OTHER | END 2023-07-04 11:31 | disposition home or self-care (01) | LOC: CSHWCC 11:30 | PROVIDERS: ATTEND Physician Assistant | DX: E11.621 Type 2 diabetes mellitus with foot ulcer (principal); L89.629 Pressure ulcer of left heel, unspecified stage; Z99.3 Dependence on wheelchair | CPT/HCPCS: 29581; 99212; G0463 ==

== ENCOUNTER 2023-08-12 10:18 | Outpatient (CLI) | payer OTHER | END 2023-08-12 10:19 | disposition home or self-care (01) | LOC: CSHWCC 10:18 | PROVIDERS: ATTEND Physician Assistant | DX: E11.621 Type 2 diabetes mellitus with foot ulcer (principal); I87.313 Chronic venous hypertension (idiopathic) with ulcer of bilateral lower extremity; L89.629 Pressure ulcer of left heel, unspecified stage; Z99.3 Dependence on wheelchair | CPT/HCPCS: 29581 ==

== ENCOUNTER 2023-08-15 11:43 | Outpatient (CLI) | payer OTHER | END 2023-08-15 11:44 | disposition home or self-care (01) | LOC: CSHWCC 11:43 | PROVIDERS: ATTEND Physician Assistant | DX: E11.621 Type 2 diabetes mellitus with foot ulcer (principal); L97.519 Non-pressure chronic ulcer of other part of right foot with unspecified severity; I87.313 Chronic venous hypertension (idiopathic) with ulcer of bilateral lower extremity; L89.629 Pressure ulcer of left heel, unspecified stage; Z99.3 Dependence on wheelchair | CPT/HCPCS: 29581 ==

== ENCOUNTER 2023-09-07 07:01 | Inpatient (IN) | payer OTHER ==
[2023-09-07 08:28] LABS: #Neutrophils 11.2 10x3/uL (1.5-8.4); %Basophils 0.2 % (0.0-2.0); %Eosinophils 0.1 % (0.0-6.0); %Monocytes 7.5 % (0.0-10.0); %Neutrophils 85.6 % (40.0-75.0); Critical Call w/ Read Back ERS.HF@0828; Hematocrit 18.6 % (34.9-44.5); Hemoglobin 5.6 g/dL (12.0-15.5); Mean Corpuscular HGB CONC 30.1 g/dL (32.0-36.0); Mean Corpuscular Hemoglobin 28.9 pg (27.0-33.0); Mean Corpuscular Volume 95.9 fl (81.6-98.3); Mean Platelet Volume 9.9 fl (7.4-10.4); Platelet Count 228 10x3/uL (150-450); RBC Distribution Width 17.9 % (11.5-14.5); Red Blood Cell (RBC) Count 1.94 10x6/uL (3.90-5.03); White Blood Cell (WBC) Count 13.1 10x3/uL (3.5-10.5)
[2023-09-07 08:43] LABS: ALT (SGPT) 19 U/L (8-55); AST (SGOT) 13 U/L (5-34); Albumin 3.7 g/dL (3.4-4.8); Alkaline Phosphatase 80 U/L (40-110); Anion Gap 19 mmol/L (10-20); BUN (Urea Nitrogen) 85 mg/dL (9.8-20.1); Bilirubin, Total 0.7 mg/dL (0.2-1.2); Calc. Creatinine Clearance 0 mL/min (70-130); Calcium 9.1 mg/dL (7.8-10.44); Carbon Dioxide 22 mmol/L (23-31); Chloride 105 mmol/L (98-107); Estimated GFR 14; Globulin 2.2 g/dL (2.4-3.5); Glucose 277 mg/dL (80-115); Lipase 21 U/L (8-78); Magnesium 2.2 mg/dL (1.6-2.6); Potassium 3.4 mmol/L (3.5-5.1); Protein, Total 5.9 g/dL (5.8-8.1); Sodium 143 mmol/L (136-145)
[2023-09-07] MEDS ORDERED: LevoFLOXacin 750 mg/D5W 150 ml Premix Bag ONE (08:48)
[2023-09-07 09:37] LABS: SARS-CoV-2 NAA Rapid Test Not Detected (NotDetected)
[2023-09-07 09:54] LABS: Troponin I 0.055 ng/mL (< 0.028)
[2023-09-07 10:17] LABS: Bilirubin Neg (Negative); Blood, Urine 25 (Negative); Clarity Slightly Cloudy (Clear); Glucose, Urine (Dipstick) >=1000 mg/dL (Negative); Ketone, Urine Negative (Negative); Leukocyte Negative (Negative); Nitrite Negative (Negative); Protein, Urine (Dipstick) 500 mg/dl (Neg-Trace); Specific Gravity, Urine 1.015 (1.005-1.030); Urobilinogen Normal mg/dL (Less than 2)
[2023-09-07 10:32] LABS: Bacteria/HPF 2+ HPF (None Seen); CAUTI Indications for Culture Alt mental st,lethar; RBC/HPF 0-3 HPF (0-3); WBC/HPF 0-3 HPF (0-3)
[2023-09-07 10:33] LABS: Urine Culture Reflex No No
[2023-09-07 11:15] LABS: Lactic Acid 1.2 mmol/L (0.5-2.2)
[2023-09-07 11:25] LABS: Troponin I 0.058 ng/mL (< 0.028)
[2023-09-07] MEDS ORDERED: Dextrose 5% in Water 1,000 ML IV PRN (14:55)
[2023-09-07] MEDS ORDERED: Glucagon 1 MG/ML KIT IM PRN (14:55)
[2023-09-07] MEDS ORDERED: Dextrose 50% Abboject 50 ML SYRINGE SLOW IVP PRN (14:55)
[2023-09-07 18:53] VITALS: BMI 27.8
[2023-09-07] MEDS ORDERED: FLU VACC QS2023-24(6MOS UP)/PF 60 MCG/0.5 ML SYRINGE IM ONE (19:00)
[2023-09-07 19:18] LABS: Troponin I 0.034 ng/mL (< 0.028)
[2023-09-07] MEDS: HumaLOG 300 UNITS/3 ML VIAL SC PRN (21:10)
[2023-09-07] MEDS ORDERED: Carvedilol 3.125 MG TAB PO SCH (21:30)
[2023-09-08] MEDS ORDERED: hydrALAZINE 25 MG TAB PO SCH (01:15)
[2023-09-08 04:05] LABS: Anion Gap 17 mmol/L (10-20); BUN (Urea Nitrogen) 71 mg/dL (9.8-20.1); Calc. Creatinine Clearance 27 mL/min (70-130); Calcium 8.7 mg/dL (7.8-10.44); Carbon Dioxide 21 mmol/L (23-31); Chloride 105 mmol/L (98-107); Estimated GFR 17; Glucose 135 mg/dL (80-115); Potassium 3.1 mmol/L (3.5-5.1); Sodium 140 mmol/L (136-145)
[2023-09-08 04:45] LABS: #Eosinphils 0.1 10x3/uL (0.0-0.5); #Neutrophils 11.8 10x3/uL (1.5-8.4); %Basophils 0.3 % (0.0-2.0); %Eosinophils 0.5 % (0.0-6.0); %Lymphocytes 4.9 % (18.0-47.0); %Monocytes 7.1 % (0.0-10.0); %Neutrophils 86.5 % (40.0-75.0); Hematocrit 21.1 % (34.9-44.5); Hemoglobin 6.6 g/dL (12.0-15.5); Mean Corpuscular HGB CONC 31.3 g/dL (32.0-36.0); Mean Corpuscular Hemoglobin 28.9 pg (27.0-33.0); Mean Corpuscular Volume 92.5 fl (81.6-98.3); Mean Platelet Volume 10.5 fl (7.4-10.4); Platelet Count 168 10x3/uL (150-450); RBC Distribution Width 18.3 % (11.5-14.5); Red Blood Cell (RBC) Count 2.28 10x6/uL (3.90-5.03); White Blood Cell (WBC) Count 13.6 10x3/uL (3.5-10.5)
[2023-09-08 05:02] LABS: Ovalocytes SLIGHT = 2-5 cells (100X) (0-1/hpf); Platelet Adequacy Comment Appears Adequate; Polychromasia SLIGHT = 2-3 cells (100X) (0-2/hpf)
[2023-09-08] MEDS ORDERED: Apixaban 5 MG TAB PO SCH (09:00)
[2023-09-08] MEDS: Iron, Sodium Ferric Gluconate 250 MG in Sodium Chloride 0.9% 250 ML 250 ML IVPB SCH (10:12)
[2023-09-08] MEDS: Potassium Chloride 20 MEQ TAB PO SCH (10:18)
[2023-09-08] MEDS: hydrALAZINE 25 MG TAB PO SCH ×3 (10:18→21:17)
[2023-09-08] MEDS: Folic Acid/Vit B Comp W-C PO SCH (10:18)
[2023-09-08] MEDS: cloNIDine 0.1 MG TAB PO SCH ×3 (10:19→21:17)
[2023-09-08] MEDS: Ferrous Sulfate 325 MG TAB PO SCH ×2 (10:19→16:04)
[2023-09-08] MEDS: Carvedilol 25 MG TAB PO SCH ×2 (10:19→16:04)
[2023-09-08] MEDS: Isosorbide Mononitrate 30 MG ER.TAB PO SCH (10:19)
[2023-09-08 15:40] LABS: #Eosinphils 0.1 10x3/uL (0.0-0.5); #Monocytes 0.8 10x3/uL (0.0-1.1); #Neutrophils 8.5 10x3/uL (1.5-8.4); %Basophils 0.2 % (0.0-2.0); %Eosinophils 1.3 % (0.0-6.0); %Lymphocytes 7.4 % (18.0-47.0); %Monocytes 7.5 % (0.0-10.0); %Neutrophils 82.9 % (40.0-75.0); Hematocrit 20.2 % (34.9-44.5); Hemoglobin 6.5 g/dL (12.0-15.5); Mean Corpuscular HGB CONC 32.2 g/dL (32.0-36.0); Mean Corpuscular Hemoglobin 28.3 pg (27.0-33.0); Mean Corpuscular Volume 87.8 fl (81.6-98.3); Mean Platelet Volume 9.8 fl (7.4-10.4); Platelet Count 188 10x3/uL (150-450); RBC Distribution Width 18.1 % (11.5-14.5); White Blood Cell (WBC) Count 10.3 10x3/uL (3.5-10.5)
[2023-09-08] MEDS: Atorvastatin Calcium 40 MG TAB PO SCH (21:17)
[2023-09-09 04:21] LABS: #Eosinphils 0.2 10x3/uL (0.0-0.5); #Monocytes 0.7 10x3/uL (0.0-1.1); #Neutrophils 6.3 10x3/uL (1.5-8.4); %Basophils 0.4 % (0.0-2.0); %Eosinophils 2.2 % (0.0-6.0); %Lymphocytes 8.7 % (18.0-47.0); %Monocytes 8.7 % (0.0-10.0); %Neutrophils 79.4 % (40.0-75.0); Hematocrit 18.9 % (34.9-44.5); Mean Corpuscular HGB CONC 31.7 g/dL (32.0-36.0); Mean Corpuscular Volume 91.3 fl (81.6-98.3); Mean Platelet Volume 9.9 fl (7.4-10.4); Platelet Count 168 10x3/uL (150-450); RBC Distribution Width 18.5 % (11.5-14.5); Red Blood Cell (RBC) Count 2.07 10x6/uL (3.90-5.03); White Blood Cell (WBC) Count 7.9 10x3/uL (3.5-10.5)
[2023-09-09 04:23] LABS: Phosphorus 4.8 mg/dL (2.3-4.7)
[2023-09-09 04:29] LABS: ALT (SGPT) 14 U/L (8-55); AST (SGOT) 12 U/L (5-34); Albumin 2.7 g/dL (3.4-4.8); Alkaline Phosphatase 56 U/L (40-110); Anion Gap 14 mmol/L (10-20); BUN (Urea Nitrogen) 73 mg/dL (9.8-20.1); Bilirubin, Total 0.7 mg/dL (0.2-1.2); Calc. Creatinine Clearance 25 mL/min (70-130); Calcium 8.1 mg/dL (7.8-10.44); Carbon Dioxide 23 mmol/L (23-31); Chloride 104 mmol/L (98-107); Estimated GFR 16; Globulin 1.7 g/dL (2.4-3.5); Glucose 153 mg/dL (80-115); Potassium 3.3 mmol/L (3.5-5.1); Protein, Total 4.4 g/dL (5.8-8.1); Sodium 138 mmol/L (136-145)
[2023-09-09 04:50] LABS: Iron 34 ug/dL (50-170); Iron Binding Capacity, Total 199 mcg/dL (265-497)
[2023-09-09] MEDS: cloNIDine 0.1 MG TAB PO SCH ×3 (08:51→21:18)
[2023-09-09] MEDS: Isosorbide Mononitrate 30 MG ER.TAB PO SCH (08:52)
[2023-09-09] MEDS: Ferrous Sulfate 325 MG TAB PO SCH ×2 (08:52→18:03)
[2023-09-09] MEDS: hydrALAZINE 25 MG TAB PO SCH ×3 (08:52→21:18)
[2023-09-09] MEDS: Potassium Chloride 20 MEQ TAB PO SCH (08:53)
[2023-09-09] MEDS: Folic Acid/Vit B Comp W-C PO SCH (08:54)
[2023-09-09] MEDS: Carvedilol 25 MG TAB PO SCH ×2 (08:54→18:03)
[2023-09-09] MEDS ORDERED: LevoFLOXacin 750 mg/D5W 750 MG in Premix 1 BAG IVPB SCH ×3 (10:00→18:15)
[2023-09-09] MEDS: Atorvastatin Calcium 40 MG TAB PO SCH (21:18)
[2023-09-09] MEDS: Iron, Sodium Ferric Gluconate 250 MG in Sodium Chloride 0.9% 250 ML 250 ML IVPB SCH (21:51)
[2023-09-10] MEDS ORDERED: Acetaminophen 325 MG TAB PO PRN (00:04)
[2023-09-10 04:23] LABS: #Eosinphils 0.2 10x3/uL (0.0-0.5); #Monocytes 0.7 10x3/uL (0.0-1.1); #Neutrophils 6.1 10x3/uL (1.5-8.4); %Basophils 0.4 % (0.0-2.0); %Eosinophils 2.4 % (0.0-6.0); %Lymphocytes 9.7 % (18.0-47.0); %Monocytes 9.4 % (0.0-10.0); %Neutrophils 77.6 % (40.0-75.0); Hematocrit 23.3 % (34.9-44.5); Hemoglobin 7.7 g/dL (12.0-15.5); Mean Corpuscular Hemoglobin 29.5 pg (27.0-33.0); Mean Corpuscular Volume 89.3 fl (81.6-98.3); Mean Platelet Volume 9.8 fl (7.4-10.4); Platelet Count 152 10x3/uL (150-450); RBC Distribution Width 17.7 % (11.5-14.5); Red Blood Cell (RBC) Count 2.61 10x6/uL (3.90-5.03); White Blood Cell (WBC) Count 7.9 10x3/uL (3.5-10.5)
[2023-09-10 04:39] LABS: Anion Gap 14 mmol/L (10-20); BUN (Urea Nitrogen) 79 mg/dL (9.8-20.1); Calc. Creatinine Clearance 23 mL/min (70-130); Carbon Dioxide 23 mmol/L (23-31); Chloride 103 mmol/L (98-107); Estimated GFR 15; Glucose 164 mg/dL (80-115); Potassium 3.6 mmol/L (3.5-5.1); Sodium 136 mmol/L (136-145)
[2023-09-10] MEDS: Carvedilol 25 MG TAB PO SCH ×2 (09:23→15:53)
[2023-09-10] MEDS: cloNIDine 0.1 MG TAB PO SCH ×3 (09:23→20:32)
[2023-09-10] MEDS: hydrALAZINE 25 MG TAB PO SCH ×3 (09:23→20:32)
[2023-09-10] MEDS: Potassium Chloride 20 MEQ TAB PO SCH (09:23)
[2023-09-10] MEDS: Isosorbide Mononitrate 30 MG ER.TAB PO SCH (09:23)
[2023-09-10] MEDS: Folic Acid/Vit B Comp W-C PO SCH (09:24)
[2023-09-10] MEDS: Ferrous Sulfate 325 MG TAB PO SCH ×2 (09:24→15:54)
[2023-09-10] MEDS: Iron, Sodium Ferric Gluconate 250 MG in Sodium Chloride 0.9% 250 ML 250 ML IVPB SCH (10:33)
[2023-09-10] MEDS: HumaLOG 300 UNITS/3 ML VIAL SC PRN ×2 (12:14→20:32)
[2023-09-10] MEDS: Atorvastatin Calcium 40 MG TAB PO SCH (20:31)
[2023-09-11 05:01] LABS: #Eosinphils 0.2 10x3/uL (0.0-0.5); #Monocytes 0.8 10x3/uL (0.0-1.1); #Neutrophils 6.1 10x3/uL (1.5-8.4); %Basophils 0.4 % (0.0-2.0); %Eosinophils 2.7 % (0.0-6.0); %Lymphocytes 9.1 % (18.0-47.0); %Monocytes 9.9 % (0.0-10.0); %Neutrophils 77.4 % (40.0-75.0); Hematocrit 25.3 % (34.9-44.5); Hemoglobin 8.1 g/dL (12.0-15.5); Mean Corpuscular Volume 90.7 fl (81.6-98.3); Mean Platelet Volume 10.3 fl (7.4-10.4); Platelet Count 177 10x3/uL (150-450); RBC Distribution Width 17.4 % (11.5-14.5); Red Blood Cell (RBC) Count 2.79 10x6/uL (3.90-5.03); White Blood Cell (WBC) Count 7.9 10x3/uL (3.5-10.5)
[2023-09-11 05:16] LABS: Anion Gap 14 mmol/L (10-20); BUN (Urea Nitrogen) 80 mg/dL (9.8-20.1); Calc. Creatinine Clearance 23 mL/min (70-130); Calcium 8.3 mg/dL (7.8-10.44); Carbon Dioxide 22 mmol/L (23-31); Chloride 107 mmol/L (98-107); Estimated GFR 15; Glucose 166 mg/dL (80-115); Potassium 3.9 mmol/L (3.5-5.1); Sodium 139 mmol/L (136-145)
[2023-09-11] MEDS: Carvedilol 25 MG TAB PO SCH (05:39)
[2023-09-11] MEDS ORDERED: Furosemide 40 MG TAB PO PRN (07:26)
[2023-09-11] MEDS: Ferrous Sulfate 325 MG TAB PO SCH (08:57)
[2023-09-11] MEDS: Potassium Chloride 20 MEQ TAB PO SCH (08:57)
[2023-09-11] MEDS: Isosorbide Mononitrate 30 MG ER.TAB PO SCH (08:58)
[2023-09-11] MEDS: Folic Acid/Vit B Comp W-C PO SCH (08:58)
[2023-09-11] MEDS: hydrALAZINE 25 MG TAB PO SCH (08:58)
[2023-09-11] MEDS: HumaLOG 300 UNITS/3 ML VIAL SC PRN (08:59)
[2023-09-11 09:00] VITALS: BP 177/77
[2023-09-11] MEDS ORDERED: cloNIDine 0.1 MG TAB PO SCH (09:00)
[2023-09-11 09:04] VITALS: TEMP 98.6
[2023-09-11] MEDS: Iron, Sodium Ferric Gluconate 250 MG in Sodium Chloride 0.9% 250 ML 250 ML IVPB SCH ×2 (10:02→14:56)
== END 2023-09-11 10:50 | disposition home or self-care (01) | DRG 871 ==
LOC: CSHERS 07:01 → CSHERHOLD 10:32 → CSHTELE 14:32
PROVIDERS: ADMIT Internal Medicine; ATTEND Family Medicine
PROC: 30233N1 Transfusion of Nonautologous Red Blood Cells into Peripheral Vein, Percutaneous Approach (ICD-10-PCS; principal; 2023-09-07)
DX: A41.9 Sepsis, unspecified organism (principal); J18.9 Pneumonia, unspecified organism; I13.0 Hypertensive heart and chronic kidney disease with heart failure and stage 1 through stage 4 chronic kidney disease, or unspecified chronic kidney disease; I50.32 Chronic diastolic (congestive) heart failure; N18.4 Chronic kidney disease, stage 4 (severe); D63.1 Anemia in chronic kidney disease; E11.22 Type 2 diabetes mellitus with diabetic chronic kidney disease; D50.9 Iron deficiency anemia, unspecified; I44.0 Atrioventricular block, first degree; E11.40 Type 2 diabetes mellitus with diabetic neuropathy, unspecified; E11.21 Type 2 diabetes mellitus with diabetic nephropathy; M10.9 Gout, unspecified; E87.6 Hypokalemia; Z74.09 Other reduced mobility; Z91.040 Latex allergy status; Z88.8 Allergy status to other drugs, medicaments and biological substances; Z79.899 Other long term (current) drug therapy; Z79.82 Long term (current) use of aspirin; Z79.2 Long term (current) use of antibiotics; Z83.3 Family history of diabetes mellitus; Z82.49 Family history of ischemic heart disease and other diseases of the circulatory system; Z11.52 Encounter for screening for COVID-19
CPT/HCPCS: 36415; 36416; 36430; 70450; 71045; 80048; 80053; 81001; 82274; 82728; 83540; 83550; 83605; 83690; 83735; 83880; 84100; 84484; 85025; 86850; 86900; 86901; 87040; 87086; 93005; 96365; 96366; J1815; J1956; J2916; J7050; P9016

== ENCOUNTER 2023-09-14 07:28 | Inpatient (IN) | payer OTHER ==
[2023-09-14] MEDS ORDERED: Nitroglycerin 2% Ointment 1 INCH/1 GM Packet ONE (08:01)
[2023-09-14 08:46] LABS: INR-International Normal Ratio 1.2; PTT 29.3 sec (22.0-33.0); Prothrombin Time 12.5 sec (9.5-12.1)
[2023-09-14 08:50] LABS: #Eosinphils 0.3 10x3/uL (0.0-0.5); #Monocytes 0.7 10x3/uL (0.0-1.1); #Neutrophils 7.7 10x3/uL (1.5-8.4); %Basophils 0.3 % (0.0-2.0); %Eosinophils 2.7 % (0.0-6.0); %Lymphocytes 10.5 % (18.0-47.0); %Monocytes 7.4 % (0.0-10.0); %Neutrophils 78.5 % (40.0-75.0); Hematocrit 35.2 % (34.9-44.5); Hemoglobin 11.3 g/dL (12.0-15.5); Mean Corpuscular HGB CONC 32.1 g/dL (32.0-36.0); Mean Corpuscular Volume 90.5 fl (81.6-98.3); Mean Platelet Volume 9.9 fl (7.4-10.4); Platelet Count 217 10x3/uL (150-450); Red Blood Cell (RBC) Count 3.89 10x6/uL (3.90-5.03); White Blood Cell (WBC) Count 9.8 10x3/uL (3.5-10.5)
[2023-09-14 08:53] LABS: ALT (SGPT) 18 U/L (8-55); AST (SGOT) 17 U/L (5-34); Albumin 3.3 g/dL (3.4-4.8); Alkaline Phosphatase 76 U/L (40-110); Anion Gap 16 mmol/L (10-20); BUN (Urea Nitrogen) 54 mg/dL (9.8-20.1); Bilirubin, Total 1.3 mg/dL (0.2-1.2); Calc. Creatinine Clearance 0 mL/min (70-130); Carbon Dioxide 20 mmol/L (23-31); Chloride 109 mmol/L (98-107); Estimated GFR 19; Glucose 105 mg/dL (80-115); Magnesium 2.1 mg/dL (1.6-2.6); Potassium 4.1 mmol/L (3.5-5.1); Protein, Total 5.3 g/dL (5.8-8.1); Sodium 141 mmol/L (136-145)
[2023-09-14] MEDS ORDERED: hydrALAZINE 25 MG TAB ONE (09:19)
[2023-09-14] MEDS ORDERED: Furosemide 40 MG (4 mL) VIAL ONE ×2 (10:11→14:46)
[2023-09-14] MEDS ORDERED: Dextrose 5% in Water 1,000 ML IV PRN (10:23)
[2023-09-14] MEDS ORDERED: Dextrose 50% Abboject 50 ML SYRINGE SLOW IVP PRN (10:23)
[2023-09-14] MEDS ORDERED: HumaLOG 300 UNITS/3 ML VIAL SC PRN ×2 (10:23)
[2023-09-14] MEDS ORDERED: Glucagon 1 MG/ML KIT IM PRN (10:23)
[2023-09-14] MEDS ORDERED: Carvedilol 6.25 MG TAB PO SCH (14:00)
[2023-09-14] MEDS ORDERED: Carvedilol 6.25 MG TAB ONE (14:49)
[2023-09-14] MEDS: Furosemide 40 MG (4 mL) VIAL SLOW IVP SCH (14:56)
[2023-09-14] MEDS: hydrALAZINE 25 MG TAB PO SCH ×2 (16:07→20:31)
[2023-09-14] MEDS: Carvedilol 6.25 MG TAB PO SCH (17:06)
[2023-09-14 17:10] VITALS: BMI 29.5
[2023-09-14] MEDS: Atorvastatin Calcium 40 MG TAB PO SCH (20:33)
[2023-09-14] MEDS ORDERED: hydrALAZINE 20 MG/ML VIAL SLOW IVP SCH (23:45)
[2023-09-14] MEDS ORDERED: Promethazine HCl 12.5 MG, Admixture Fee 1 EACH in Sodium Chloride 0.9% 50 ML IVPB SCH (23:45)
[2023-09-15] MEDS ORDERED: Labetalol HCl 100 MG/20 ML VIAL SLOW IVP SCH ×2 (04:45→06:30)
[2023-09-15] MEDS ORDERED: Metoclopramide HCl 10 MG (2 mL) VIAL IVP SCH (04:45)
[2023-09-15 05:55] LABS: Troponin I 0.036 ng/mL (< 0.028)
[2023-09-15] MEDS: Furosemide 40 MG (4 mL) VIAL SLOW IVP SCH ×2 (06:03→14:21)
[2023-09-15] MEDS ORDERED: hydrALAZINE 25 MG TAB PO SCH (06:30)
[2023-09-15] MEDS ORDERED: Carvedilol 25 MG TAB PO SCH (08:15)
[2023-09-15] MEDS: Aspirin Chewable 81 MG TAB PO SCH (08:42)
[2023-09-15] MEDS: Carvedilol 6.25 MG TAB PO SCH (08:45)
[2023-09-15 08:47] LABS: Anion Gap 17 mmol/L (10-20); BUN (Urea Nitrogen) 49 mg/dL (9.8-20.1); Calc. Creatinine Clearance 31 mL/min (70-130); Calcium 8.9 mg/dL (7.8-10.44); Carbon Dioxide 21 mmol/L (23-31); Chloride 106 mmol/L (98-107); Estimated GFR 20; Glucose 131 mg/dL (80-115); Magnesium 1.9 mg/dL (1.6-2.6); Potassium 3.8 mmol/L (3.5-5.1); Sodium 140 mmol/L (136-145)
[2023-09-15 08:48] LABS: #Basophils 0.1 10x3/uL (0.0-0.2); #Eosinphils 0.2 10x3/uL (0.0-0.5); #Monocytes 0.8 10x3/uL (0.0-1.1); %Basophils 0.5 % (0.0-2.0); %Eosinophils 1.9 % (0.0-6.0); %Lymphocytes 8.6 % (18.0-47.0); %Monocytes 7.6 % (0.0-10.0); %Neutrophils 80.9 % (40.0-75.0); Hematocrit 33.1 % (34.9-44.5); Hemoglobin 10.8 g/dL (12.0-15.5); Mean Corpuscular HGB CONC 32.6 g/dL (32.0-36.0); Mean Corpuscular Hemoglobin 29.3 pg (27.0-33.0); Mean Corpuscular Volume 89.9 fl (81.6-98.3); Mean Platelet Volume 9.8 fl (7.4-10.4); Platelet Count 192 10x3/uL (150-450); RBC Distribution Width 16.6 % (11.5-14.5); Red Blood Cell (RBC) Count 3.68 10x6/uL (3.90-5.03); Troponin I 0.025 ng/mL (< 0.028); White Blood Cell (WBC) Count 11.1 10x3/uL (3.5-10.5)
[2023-09-15] MEDS: hydrALAZINE 25 MG TAB PO SCH ×3 (09:32→21:08)
[2023-09-15] MEDS: Carvedilol 25 MG TAB PO SCH (17:45)
[2023-09-15] MEDS: Atorvastatin Calcium 40 MG TAB PO SCH (21:08)
[2023-09-16 05:14] LABS: Anion Gap 14 mmol/L (10-20); BUN (Urea Nitrogen) 49 mg/dL (9.8-20.1); Calc. Creatinine Clearance 30 mL/min (70-130); Calcium 8.9 mg/dL (7.8-10.44); Carbon Dioxide 25 mmol/L (23-31); Chloride 102 mmol/L (98-107); Estimated GFR 19; Glucose 122 mg/dL (80-115); Potassium 3.6 mmol/L (3.5-5.1); Sodium 137 mmol/L (136-145)
[2023-09-16 05:28] LABS: #Basophils 0.1 10x3/uL (0.0-0.2); #Eosinphils 0.2 10x3/uL (0.0-0.5); #Monocytes 0.7 10x3/uL (0.0-1.1); #Neutrophils 6.4 10x3/uL (1.5-8.4); %Basophils 0.6 % (0.0-2.0); %Lymphocytes 11.4 % (18.0-47.0); %Monocytes 8.2 % (0.0-10.0); %Neutrophils 77.3 % (40.0-75.0); Hematocrit 31.2 % (34.9-44.5); Hemoglobin 10.1 g/dL (12.0-15.5); Mean Corpuscular HGB CONC 32.4 g/dL (32.0-36.0); Mean Corpuscular Hemoglobin 28.6 pg (27.0-33.0); Mean Corpuscular Volume 88.4 fl (81.6-98.3); Mean Platelet Volume 9.5 fl (7.4-10.4); Platelet Count 196 10x3/uL (150-450); RBC Distribution Width 16.6 % (11.5-14.5); Red Blood Cell (RBC) Count 3.53 10x6/uL (3.90-5.03); White Blood Cell (WBC) Count 8.3 10x3/uL (3.5-10.5)
[2023-09-16] MEDS: Furosemide 40 MG (4 mL) VIAL SLOW IVP SCH ×2 (05:39→15:05)
[2023-09-16] MEDS: hydrALAZINE 25 MG TAB PO SCH ×3 (09:33→21:06)
[2023-09-16] MEDS: Aspirin Chewable 81 MG TAB PO SCH (09:33)
[2023-09-16] MEDS: Carvedilol 25 MG TAB PO SCH ×2 (09:33→17:03)
[2023-09-16] MEDS: Atorvastatin Calcium 40 MG TAB PO SCH (21:06)
[2023-09-16] MEDS: Apixaban 5 MG TAB PO SCH (21:06)
[2023-09-17] MEDS: hydrALAZINE 25 MG TAB PO SCH ×3 (08:27→21:40)
[2023-09-17] MEDS: Carvedilol 25 MG TAB PO SCH ×2 (08:27→17:35)
[2023-09-17] MEDS: Aspirin Chewable 81 MG TAB PO SCH (08:27)
[2023-09-17] MEDS: Apixaban 5 MG TAB PO SCH ×2 (08:27→21:39)
[2023-09-17 09:38] LABS: Anion Gap 13 mmol/L (10-20); BUN (Urea Nitrogen) 47 mg/dL (9.8-20.1); Calc. Creatinine Clearance 30 mL/min (70-130); Calcium 8.8 mg/dL (7.8-10.44); Carbon Dioxide 28 mmol/L (23-31); Chloride 100 mmol/L (98-107); Estimated GFR 19; Glucose 127 mg/dL (80-115); Potassium 3.6 mmol/L (3.5-5.1); Sodium 137 mmol/L (136-145)
[2023-09-17] MEDS ORDERED: cloNIDine 0.1mg/24 Hour PATCH TD SCH (11:00)
[2023-09-17] MEDS: Atorvastatin Calcium 40 MG TAB PO SCH (21:26)
[2023-09-18] MEDS: hydrALAZINE 25 MG TAB PO SCH ×3 (00:23→15:55)
[2023-09-18 03:52] LABS: Anion Gap 12 mmol/L (10-20); BUN (Urea Nitrogen) 53 mg/dL (9.8-20.1); Calc. Creatinine Clearance 28 mL/min (70-130); Calcium 8.3 mg/dL (7.8-10.44); Carbon Dioxide 24 mmol/L (23-31); Chloride 102 mmol/L (98-107); Estimated GFR 17; Glucose 179 mg/dL (80-115); Potassium 3.7 mmol/L (3.5-5.1); Sodium 134 mmol/L (136-145)
[2023-09-18] MEDS ORDERED: hydrALAZINE 25 MG TAB PO SCH (09:00)
[2023-09-18] MEDS: Carvedilol 25 MG TAB PO SCH ×2 (09:16→17:24)
[2023-09-18] MEDS: Apixaban 5 MG TAB PO SCH (09:17)
[2023-09-18 17:51] VITALS: BP 143/80; TEMP 99
== END 2023-09-18 18:40 | disposition home or self-care (01) | DRG 291 ==
LOC: CSHERS 07:28 → CSHERHOLD 07:39 → CSHTELE 15:25
PROVIDERS: ADMIT Family Medicine; ATTEND Family Medicine
DX: I13.0 Hypertensive heart and chronic kidney disease with heart failure and stage 1 through stage 4 chronic kidney disease, or unspecified chronic kidney disease (principal); I50.43 Acute on chronic combined systolic (congestive) and diastolic (congestive) heart failure; N18.4 Chronic kidney disease, stage 4 (severe); Z91.040 Latex allergy status; Z88.8 Allergy status to other drugs, medicaments and biological substances; Z79.899 Other long term (current) drug therapy; Z79.82 Long term (current) use of aspirin; Z79.4 Long term (current) use of insulin; Z98.890 Other specified postprocedural states; D63.1 Anemia in chronic kidney disease; E11.22 Type 2 diabetes mellitus with diabetic chronic kidney disease; M10.9 Gout, unspecified; Z79.01 Long term (current) use of anticoagulants; Z95.5 Presence of coronary angioplasty implant and graft; Z83.3 Family history of diabetes mellitus; Z82.49 Family history of ischemic heart disease and other diseases of the circulatory system; E11.40 Type 2 diabetes mellitus with diabetic neuropathy, unspecified; Z86.718 Personal history of other venous thrombosis and embolism; L68.0 Hirsutism
CPT/HCPCS: 36415; 36416; 71045; 76705; 76770; 80048; 80053; 82533; 83690; 83735; 83880; 84443; 84484; 85025; 85610; 85730; 93005; 93010; 93306; 94760; 96374; 97139; J0360; J1940; J2550; J2765

== ENCOUNTER 2023-10-19 12:16 | Inpatient (IN) | payer OTHER ==
[2023-10-19 13:21] LABS: #Eosinphils 0.1 10x3/uL (0.0-0.5); #Monocytes 0.7 10x3/uL (0.0-1.1); #Neutrophils 12.2 10x3/uL (1.5-8.4); %Basophils 0.1 % (0.0-2.0); %Eosinophils 0.8 % (0.0-6.0); %Neutrophils 88.6 % (40.0-75.0); ALT (SGPT) 22 U/L (8-55); AST (SGOT) 14 U/L (5-34); Albumin 3.3 g/dL (3.4-4.8); Alkaline Phosphatase 70 U/L (40-110); Anion Gap 16 mmol/L (10-20); BUN (Urea Nitrogen) 83 mg/dL (9.8-20.1); Bilirubin, Total 0.4 mg/dL (0.2-1.2); Calc. Creatinine Clearance 0 mL/min (70-130); Calcium 9.5 mg/dL (7.8-10.44); Carbon Dioxide 19 mmol/L (23-31); Chloride 110 mmol/L (98-107); Estimated GFR 16; Globulin 2.5 g/dL (2.4-3.5); Glucose 196 mg/dL (80-115); Hematocrit 20.9 % (34.9-44.5); Hemoglobin 6.3 g/dL (12.0-15.5); Lipase 14 U/L (8-78); Mean Corpuscular HGB CONC 30.1 g/dL (32.0-36.0); Mean Corpuscular Hemoglobin 28.1 pg (27.0-33.0); Mean Corpuscular Volume 93.3 fl (81.6-98.3); Platelet Count 207 10x3/uL (150-450); Potassium 3.7 mmol/L (3.5-5.1); Protein, Total 5.8 g/dL (5.8-8.1); RBC Distribution Width 17.4 % (11.5-14.5); Red Blood Cell (RBC) Count 2.24 10x6/uL (3.90-5.03); Sodium 141 mmol/L (136-145); White Blood Cell (WBC) Count 13.8 10x3/uL (3.5-10.5)
[2023-10-19 13:25] LABS: Influenza A by NAA Not Detected (NotDetected); Influenza B by NAA Not Detected (NotDetected); SARS-CoV-2 NAA Rapid Test Not Detected (NotDetected)
[2023-10-19] MEDS ORDERED: Acetaminophen 500 MG TAB ONE (14:04)
[2023-10-19] MEDS ORDERED: Vancomycin 1 GM VIAL ONE ×2 (14:05→14:08)
[2023-10-19] MEDS ORDERED: Cefepime 2 GM VIAL ONE (14:05)
[2023-10-19] MEDS ORDERED: Senokot S 8.6-50 MG TAB PO PRN (14:15)
[2023-10-19] MEDS ORDERED: Dextrose 5% in Water 1,000 ML IV PRN (14:15)
[2023-10-19] MEDS ORDERED: Glucagon 1 MG/ML KIT IM PRN (14:15)
[2023-10-19] MEDS ORDERED: Dextrose 50% Abboject 50 ML SYRINGE SLOW IVP PRN (14:15)
[2023-10-19] MEDS ORDERED: Furosemide 40 MG (4 mL) VIAL ONE (15:00)
[2023-10-19] MEDS ORDERED: Potassium Chloride 20 MEQ TAB ONE (15:00)
[2023-10-19 15:24] LABS: Bilirubin Neg (Negative); Blood, Urine 25 (Negative); Clarity Clear (Clear); Glucose, Urine (Dipstick) 250 mg/dL (Negative); Ketone, Urine Negative (Negative); Leukocyte Negative (Negative); Nitrite Negative (Negative); Protein, Urine (Dipstick) 500 mg/dl (Neg-Trace); Urobilinogen Normal mg/dL (Less than 2)
[2023-10-19] MEDS ORDERED: Furosemide 40 MG TAB PO PRN (15:45)
[2023-10-19] MEDS ORDERED: Benzonatate 100 MG CAP ONE (16:16)
[2023-10-19] MEDS ORDERED: cloNIDine 0.1 MG TAB ONE (16:17)
[2023-10-19 16:35] LABS: Bacteria/HPF 2+ HPF (None Seen); CAUTI Indications for Culture Alt mental st,lethar; RBC/HPF 0-3 HPF (0-3); WBC/HPF 0-3 HPF (0-3)
[2023-10-19 16:36] LABS: Urine Culture Reflex No No
[2023-10-19] MEDS ORDERED: Carvedilol 25 MG TAB ONE (17:01)
[2023-10-19 18:23] LABS: Hematocrit 22.8 % (34.9-44.5); Hemoglobin 7.5 g/dL (12.0-15.5)
[2023-10-19] MEDS: hydrALAZINE 25 MG TAB PO SCH (21:20)
[2023-10-19] MEDS: Atorvastatin Calcium 40 MG TAB PO SCH (21:20)
[2023-10-20] MEDS: cefTRIAXone\\ROCEPHIN 2 GM in Sodium Chloride 0.9% 100 ML IVPB SCH (02:24)
[2023-10-20] MEDS: Carvedilol 25 MG TAB PO SCH (02:24)
[2023-10-20] MEDS: Azithromycin 500 MG in Sodium Chloride 0.9% 250 ML 250 ML IVPB SCH ×2 (02:24→22:48)
[2023-10-20 03:12] VITALS: BMI 33.3
[2023-10-20 04:55] LABS: #Eosinphils 0.1 10x3/uL (0.0-0.5); #Monocytes 0.6 10x3/uL (0.0-1.1); #Neutrophils 8.6 10x3/uL (1.5-8.4); %Basophils 0.3 % (0.0-2.0); %Eosinophils 0.6 % (0.0-6.0); %Lymphocytes 6.5 % (18.0-47.0); %Monocytes 5.6 % (0.0-10.0); %Neutrophils 86.4 % (40.0-75.0); Hematocrit 19.2 % (34.9-44.5); Hemoglobin 6.3 g/dL (12.0-15.5); Mean Corpuscular HGB CONC 32.8 g/dL (32.0-36.0); Mean Corpuscular Hemoglobin 30.1 pg (27.0-33.0); Mean Corpuscular Volume 91.9 fl (81.6-98.3); Mean Platelet Volume 9.7 fl (7.4-10.4); Platelet Count 178 10x3/uL (150-450); RBC Distribution Width 16.9 % (11.5-14.5); Red Blood Cell (RBC) Count 2.09 10x6/uL (3.90-5.03); White Blood Cell (WBC) Count 9.9 10x3/uL (3.5-10.5)
[2023-10-20 04:59] LABS: ALT (SGPT) 18 U/L (8-55); AST (SGOT) 11 U/L (5-34); Albumin 2.8 g/dL (3.4-4.8); Alkaline Phosphatase 58 U/L (40-110); Anion Gap 17 mmol/L (10-20); BUN (Urea Nitrogen) 80 mg/dL (9.8-20.1); Bilirubin, Total 0.4 mg/dL (0.2-1.2); Calc. Creatinine Clearance 31 mL/min (70-130); Calcium 8.9 mg/dL (7.8-10.44); Carbon Dioxide 17 mmol/L (23-31); Chloride 111 mmol/L (98-107); Estimated GFR 17; Globulin 2.2 g/dL (2.4-3.5); Glucose 167 mg/dL (80-115); Potassium 3.7 mmol/L (3.5-5.1); Sodium 141 mmol/L (136-145)
[2023-10-20] MEDS: Furosemide 40 MG (4 mL) VIAL SLOW IVP SCH (18:31)
[2023-10-21] MEDS: Guaifenesin DM 100-10/5 ML UDCUP PO PRN (00:25)
[2023-10-21] MEDS: Ondansetron PF 4 MG/2 ML Vial IVP PRN (01:50)
[2023-10-21 04:27] LABS: #Eosinphils 0.2 10x3/uL (0.0-0.5); #Monocytes 0.8 10x3/uL (0.0-1.1); #Neutrophils 6.6 10x3/uL (1.5-8.4); %Basophils 0.4 % (0.0-2.0); %Eosinophils 2.2 % (0.0-6.0); %Lymphocytes 9.8 % (18.0-47.0); %Monocytes 9.3 % (0.0-10.0); %Neutrophils 77.7 % (40.0-75.0); Hematocrit 20.9 % (34.9-44.5); Hemoglobin 6.8 g/dL (12.0-15.5); Mean Corpuscular HGB CONC 32.5 g/dL (32.0-36.0); Mean Corpuscular Hemoglobin 29.4 pg (27.0-33.0); Mean Corpuscular Volume 90.5 fl (81.6-98.3); Mean Platelet Volume 9.6 fl (7.4-10.4); Platelet Count 168 10x3/uL (150-450); RBC Distribution Width 17.2 % (11.5-14.5); Red Blood Cell (RBC) Count 2.31 10x6/uL (3.90-5.03); White Blood Cell (WBC) Count 8.5 10x3/uL (3.5-10.5)
[2023-10-21 04:29] LABS: Anion Gap 16 mmol/L (10-20); BUN (Urea Nitrogen) 82 mg/dL (9.8-20.1); Calc. Creatinine Clearance 27 mL/min (70-130); Calcium 8.5 mg/dL (7.8-10.44); Carbon Dioxide 18 mmol/L (23-31); Chloride 110 mmol/L (98-107); Estimated GFR 14; Glucose 206 mg/dL (80-115); Potassium 3.8 mmol/L (3.5-5.1); Sodium 140 mmol/L (136-145)
[2023-10-21] MEDS: Insulin Regular 300 UNITS/3 ML VIAL SC PRN (08:09)
[2023-10-21] MEDS: Azithromycin 500 MG in Sodium Chloride 0.9% 250 ML 250 ML IVPB SCH (09:34)
[2023-10-21] MEDS: NIFEdipine XL 90 MG ER.TAB PO SCH (09:36)
[2023-10-22 03:47] LABS: Anion Gap 15 mmol/L (10-20); BUN (Urea Nitrogen) 82 mg/dL (9.8-20.1); Calc. Creatinine Clearance 27 mL/min (70-130); Calcium 8.4 mg/dL (7.8-10.44); Carbon Dioxide 18 mmol/L (23-31); Chloride 109 mmol/L (98-107); Estimated GFR 14; Glucose 219 mg/dL (80-115); Potassium 3.5 mmol/L (3.5-5.1); Sodium 138 mmol/L (136-145)
[2023-10-22 04:26] LABS: #Eosinphils 0.2 10x3/uL (0.0-0.5); #Monocytes 0.7 10x3/uL (0.0-1.1); #Neutrophils 6.5 10x3/uL (1.5-8.4); %Basophils 0.2 % (0.0-2.0); %Eosinophils 2.2 % (0.0-6.0); %Lymphocytes 6.8 % (18.0-47.0); %Neutrophils 80.9 % (40.0-75.0); Hematocrit 24.1 % (34.9-44.5); Hemoglobin 7.8 g/dL (12.0-15.5); Mean Corpuscular HGB CONC 32.4 g/dL (32.0-36.0); Mean Corpuscular Hemoglobin 29.8 pg (27.0-33.0); Mean Platelet Volume 9.6 fl (7.4-10.4); Platelet Count 167 10x3/uL (150-450); RBC Distribution Width 16.9 % (11.5-14.5); Red Blood Cell (RBC) Count 2.62 10x6/uL (3.90-5.03)
[2023-10-22] MEDS ORDERED: Polyethylene Glycol 3350 17 GM Packet PO PRN (11:18)
[2023-10-22] MEDS: Acetaminophen 325 MG TAB PO PRN (22:22)
[2023-10-23 04:57] LABS: #Eosinphils 0.2 10x3/uL (0.0-0.5); #Monocytes 0.6 10x3/uL (0.0-1.1); #Neutrophils 6.2 10x3/uL (1.5-8.4); %Basophils 0.4 % (0.0-2.0); %Eosinophils 2.7 % (0.0-6.0); %Lymphocytes 8.9 % (18.0-47.0); %Neutrophils 79.5 % (40.0-75.0); Hematocrit 25.6 % (34.9-44.5); Hemoglobin 8.1 g/dL (12.0-15.5); Mean Corpuscular HGB CONC 31.6 g/dL (32.0-36.0); Mean Corpuscular Hemoglobin 28.7 pg (27.0-33.0); Mean Corpuscular Volume 90.8 fl (81.6-98.3); Mean Platelet Volume 9.6 fl (7.4-10.4); Platelet Count 179 10x3/uL (150-450); RBC Distribution Width 16.7 % (11.5-14.5); Red Blood Cell (RBC) Count 2.82 10x6/uL (3.90-5.03); White Blood Cell (WBC) Count 7.8 10x3/uL (3.5-10.5)
[2023-10-23 04:59] LABS: Anion Gap 16 mmol/L (10-20); BUN (Urea Nitrogen) 74 mg/dL (9.8-20.1); Calc. Creatinine Clearance 28 mL/min (70-130); Calcium 8.4 mg/dL (7.8-10.44); Carbon Dioxide 18 mmol/L (23-31); Chloride 107 mmol/L (98-107); Estimated GFR 15; Glucose 176 mg/dL (80-115); Potassium 3.2 mmol/L (3.5-5.1); Sodium 138 mmol/L (136-145)
[2023-10-23] MEDS: Potassium Chloride 20 MEQ TAB PO SCH (08:21)
[2023-10-24 05:34] LABS: Anion Gap 14 mmol/L (10-20); BUN (Urea Nitrogen) 69 mg/dL (9.8-20.1); Calc. Creatinine Clearance 28 mL/min (70-130); Calcium 8.4 mg/dL (7.8-10.44); Carbon Dioxide 20 mmol/L (23-31); Chloride 108 mmol/L (98-107); Estimated GFR 15; Glucose 190 mg/dL (80-115); Potassium 3.4 mmol/L (3.5-5.1); Sodium 139 mmol/L (136-145)
[2023-10-24 05:40] LABS: #Eosinphils 0.2 10x3/uL (0.0-0.5); #Monocytes 0.6 10x3/uL (0.0-1.1); #Neutrophils 5.7 10x3/uL (1.5-8.4); %Basophils 0.4 % (0.0-2.0); %Neutrophils 78.8 % (40.0-75.0); Hematocrit 23.8 % (34.9-44.5); Hemoglobin 7.8 g/dL (12.0-15.5); Mean Corpuscular HGB CONC 32.8 g/dL (32.0-36.0); Mean Corpuscular Hemoglobin 29.7 pg (27.0-33.0); Mean Corpuscular Volume 90.5 fl (81.6-98.3); Mean Platelet Volume 9.5 fl (7.4-10.4); Platelet Count 169 10x3/uL (150-450); RBC Distribution Width 16.6 % (11.5-14.5); Red Blood Cell (RBC) Count 2.63 10x6/uL (3.90-5.03); White Blood Cell (WBC) Count 7.2 10x3/uL (3.5-10.5)
[2023-10-24] MEDS: Furosemide 40 MG (4 mL) VIAL SLOW IVP SCH (08:18)
[2023-10-24] MEDS: Potassium Bicarbonate/Cit Ac 20 MEQ TAB PO SCH (08:29)
[2023-10-24 15:43] VITALS: BP 140/74
[2023-10-24 16:31] VITALS: TEMP 97.4
== END 2023-10-24 18:24 | disposition home or self-care (01) | DRG 193 ==
LOC: CSHERS 12:16 → CSHERHOLD 14:05 → CSHTELE 20:28
PROVIDERS: ADMIT Internal Medicine; ATTEND Internal Medicine
PROC: 30233N1 Transfusion of Nonautologous Red Blood Cells into Peripheral Vein, Percutaneous Approach (ICD-10-PCS; principal; 2023-10-19)
DX: J18.9 Pneumonia, unspecified organism (principal); I50.33 Acute on chronic diastolic (congestive) heart failure; J96.01 Acute respiratory failure with hypoxia; I13.0 Hypertensive heart and chronic kidney disease with heart failure and stage 1 through stage 4 chronic kidney disease, or unspecified chronic kidney disease; N18.4 Chronic kidney disease, stage 4 (severe); E11.22 Type 2 diabetes mellitus with diabetic chronic kidney disease; E11.40 Type 2 diabetes mellitus with diabetic neuropathy, unspecified; E78.5 Hyperlipidemia, unspecified; M10.9 Gout, unspecified; N18.9 Chronic kidney disease, unspecified; D63.1 Anemia in chronic kidney disease; Z11.52 Encounter for screening for COVID-19; Z79.01 Long term (current) use of anticoagulants; Z79.4 Long term (current) use of insulin; Z88.0 Allergy status to penicillin; Z88.8 Allergy status to other drugs, medicaments and biological substances; Z88.5 Allergy status to narcotic agent; Z98.51 Tubal ligation status; Z98.890 Other specified postprocedural states
CPT/HCPCS: 36415; 36416; 36430; 71045; 80048; 80053; 81001; 83690; 83880; 85025; 86850; 86900; 86901; 94760; 96374; 96375; 97139; J0456; J0692; J0696; J1815; J1940; J2405; J3370; J3490; J7050; P9016

== ENCOUNTER 2024-01-09 09:26 | Outpatient (CLI) | payer OTHER | END 2024-01-09 09:27 | disposition home or self-care (01) | LOC: CSHWCC 09:26 | PROVIDERS: ATTEND Nurse Practitioner Family | DX: L89.623 Pressure ulcer of left heel, stage 3 (principal); E11.621 Type 2 diabetes mellitus with foot ulcer | CPT/HCPCS: 11042; 99213; G0463 ==

== ENCOUNTER 2024-02-12 03:44 | Emergency (ER) | payer OTHER ==
[2024-02-12] MEDS ORDERED: traMADol HCl 50 MG TAB ONE (04:17)
[2024-02-12 04:33] LABS: #Basophils 0.03 10x3/uL (0.0-0.2); #Eosinphils 0.27 10x3/uL (0.0-0.5); #Monocytes 0.67 10x3/uL (0.0-1.1); #Neutrophils 6.41 10x3/uL (1.5-8.4); %Basophils 0.4 % (0.0-2.0); %Eosinophils 3.3 % (0.0-6.0); %Lymphocytes 8.8 % (18.0-47.0); %Monocytes 8.3 % (0.0-10.0); Hematocrit 23.5 % (34.9-44.5); Hemoglobin 7.6 g/dL (12.0-15.5); Mean Corpuscular HGB CONC 32.3 g/dL (32.0-36.0); Mean Corpuscular Hemoglobin 29.5 pg (27.0-33.0); Mean Corpuscular Volume 91.1 fL (81.6-98.3); Mean Platelet Volume 11.1 fL (7.4-10.4); Platelet Count 152 10x3/uL (150-450); RBC Distribution Width 14.8 % (11.5-14.5); Red Blood Cell (RBC) Count 2.58 10x6/uL (3.90-5.03); White Blood Cell (WBC) Count 8.1 10x3/uL (3.5-10.5)
[2024-02-12 04:46] LABS: ALT (SGPT) 14 U/L (8-55); AST (SGOT) 13 U/L (5-34); Albumin 2.7 g/dL (3.4-4.8); Alkaline Phosphatase 81 U/L (40-110); Anion Gap 13 mmol/L (10-20); BUN (Urea Nitrogen) 67 mg/dL (9.8-20.1); Bilirubin, Total 0.4 mg/dL (0.2-1.2); Calc. Creatinine Clearance 0 mL/min (70-130); Calcium 9.1 mg/dL (7.8-10.44); Carbon Dioxide 27 mmol/L (23-31); Chloride 102 mmol/L (98-107); Estimated GFR 9; Globulin 2.4 g/dL (2.4-3.5); Glucose 135 mg/dL (80-115); Potassium 3.9 mmol/L (3.5-5.1); Protein, Total 5.1 g/dL (5.8-8.1); Sodium 138 mmol/L (136-145)
[2024-02-12] MEDS ORDERED: fentaNYL 50 mcg/mL 1 mL Vial ONE (05:07)
[2024-02-12 06:01] LABS: Bilirubin Neg (Negative); Blood, Urine 10 (Negative); Clarity Clear (Clear); Glucose, Urine (Dipstick) 100 mg/dL (Negative); Ketone, Urine Negative (Negative); Leukocyte Negative (Negative); Nitrite Negative (Negative); Protein, Urine (Dipstick) 500 mg/dl (Neg-Trace); Urobilinogen Normal mg/dL (Less than 2)
[2024-02-12 06:39] LABS: CAUTI Indications for Culture Alt mental st,lethar; RBC/HPF 0-3 HPF (0-3); WBC/HPF 0-3 HPF (0-3)
[2024-02-12 06:40] LABS: Bacteria/HPF 2+ HPF (None Seen); Transitional Epithelial 0-3 HPF (None Seen)
[2024-02-12 06:41] LABS: Urine Culture Reflex No No
== END 2024-02-12 08:55 | disposition home or self-care (01) ==
LOC: CSHERS 03:44
DX: S91.302A Unspecified open wound, left foot, initial encounter (principal); E11.22 Type 2 diabetes mellitus with diabetic chronic kidney disease; I12.0 Hypertensive chronic kidney disease with stage 5 chronic kidney disease or end stage renal disease; N18.5 Chronic kidney disease, stage 5; Z99.2 Dependence on renal dialysis; X58.XXXA Exposure to other specified factors, initial encounter; Z79.4 Long term (current) use of insulin; Z79.899 Other long term (current) drug therapy
CPT/HCPCS: 36415; 80053; 81001; 83605; 85025; 96374; J3010